=== PATIENT | female | born 1970 | race Caucasian/White ===

== ENCOUNTER → 2022-04-12 07:34 | Outpatient (CLI) | payer OTHER, SELFPAY ==
[2022-04-12 08:27] LABS: Add Manual Diff / Slide Review NO; Basophils Absolute Auto 0 /uL (0-100); Basophils Percent Auto 0.7 % (0-2); Eosinophils Absolute Auto 100 /uL (0-450); Eosinophils Percent Auto 1.9 % (2-4); Hematocrit 41.8 % (36-46); Hemoglobin 13.8 g/dL (12.0-16.0); Lymphocytes Absolute Auto 1700 /uL (1100-4500); Lymphocytes Percent Auto 33.1 % (25-40); Mean Corpuscular Hemoglobin 29.8 PG (26-34); Mean Corpuscular Volume 90.5 fL (80-100); Monocytes Absolute Auto 500 /uL (0-900); Monocytes Percent Auto 9.2 % (3-14); Neutrophils Absolute Auto 2900 /uL (1500-7000); Neutrophils Percent Auto 55.1 % (50-75); Platelet Count 272 X10^3/uL (150-400); Red Blood Cell Count 4.62 X10^6/uL (4.0-5.2); Red Cell Distribution Width 13.2 % (11.6-14.8); White Blood Cell Count 5.2 X10^3/uL (4.5-11.0)
[2022-04-12 08:48] LABS: Alanine Aminotransferase 24 IU/L (<35); Albumin 4.2 g/dL (3.5-5.0); Albumin Globulin Ratio 1.4 (1.0-2.8); Alkaline Phosphatase 58 U/L (38-126); Aspartate Aminotransferase 26 IU/L (14-36); BUN Creatinine Ratio 19.7 (6-22); Bilirubin Total 0.9 mg/dL (0.2-1.3); Blood Urea Nitrogen 14 mg/dL (7-17); Calcium 8.7 mg/dL (8.4-10.2); Carbon Dioxide 26 mmol/L (22-32); Chloride 103 mmol/L (98-107); Cholesterol 198 mg/dL (140-199); Estimated Glomerular Filt Rate > 60 mL/min (>60); Glucose 88 mg/dL (70-100); HDL Cholesterol 44 mg/dL (40-60); HEMOLYSIS < 15 (0-50); LDL Cholesterol Calculated 136 mg/dL (<100); Potassium 3.9 mmol/L (3.4-5.1); Sodium 139 mmol/L (137-145); Total Protein 7.2 g/dL (6.3-8.2); Triglycerides 88 mg/dL (35-150)
[2022-04-12 09:07] LABS: Vitamin D 25 Hydroxy (D3) 32.5 ng/mL (30.0-100.0)
[2022-04-12 09:22] LABS: TSH w/ Reflex to FT4 1.24 uIU/mL (0.47-4.68)
== END ==
PROVIDERS: PCP Family Medicine; Referring Provider Family Medicine; Visit Provider Family Medicine
DX: Z13.21 Encounter for screening for nutritional disorder (principal); Z13.220 Encounter for screening for lipoid disorders
CPT/HCPCS: 36415; 80053; 80061; 82306; 84443; 85025

== ENCOUNTER 2022-10-15 07:30 | Outpatient (RCR) | payer OTHER, SELFPAY ==
--- NOTE | 2022-07-15 18:47 | PT.OIE ---
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, subsequent encounter (07/15/22) Past Medical History (Last Updated 04/30/22 @ 17:04 by Rajan Merida DO) Acute left-sided low back pain with left-sided sciatica Anxiety (~2019) Bladder disorder (~2017) Brown-Sequard syndrome (~2019) Depression (~1999) Elevated LDL cholesterol level Low vitamin D level Paralysis Spinal cord stroke (~2019) Past Surgical History (Last Updated 04/29/22 @ 19:13 by Susan Kee) Anesthesia History of bladder repair surgery (~2017) History of hysterectomy (~2017) Visit Care Team Role Provider Type Rajan Merida DO Attending Provider Physician Family Provider Primary Care Provider Referring Provider Specialty: Family Practice Address: [address] [place] [address] Email: Physical Therapy Initial Evaluation PT-OP-A Visit Information Start: 07/14/22 21:47 Freq: Status: Active Protocol: Document 07/15/22 07:39 AMB (Rec: 07/15/22 07:54 AMB [id number]) Out-Patient Physical Therapy Visit Information Visit Information Visit Type Initial Evaluation Visit Start Time 07:30 Visit Stop Time 08:15 Total Visit Minutes 45 Visit Number 1 PT-OP-B Current Condition Start: 07/14/22 21:47 Freq: Status: Active Protocol: Document 07/15/22 07:39 AMB (Rec: 07/15/22 07:54 AMB [id number]) Current Condition History of Current Condition Onset Date April Current Complaints Back going out after spinal cord stroke History of Current Condition L leg had excrutiating pain when trying to get pants on for two days in April. 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 L LE has impaired balance and strength. Challenged with floor transfer using the left leg. Did do 8 weeks of PT when spinal cord stroke first happened. Is currently working out in the pool but concerned about strengthening L leg. Stairs- tries to alternate but needs a railing to do so. Feels like putting a lot of strain on the low back because of the strength deficits. Feels like she's weaker now than when she finished PT. Personal Factors Other Personal Factors That May Effect T5 spinal cord stroke in 2020 Therapy/Recovery PT-OP-C Subjective Start: 07/14/22 21:47 Freq: Status: Active Protocol: Document 07/15/22 07:30 AMB (Rec: 07/15/22 15:33 AMB [id number]) Patient Questionnaires Oswestry Low Back Index Oswestry Score 28 Oswestry Impairment 20 to 39% Impaired (Score 20- 39) OP-PT Pain Assessment Comments Pain Comments 10/14 midback pain to hip pain on the left, tenderness to palpation, spasms PT-OP-D Balance Start: 07/15/22 15:33 Freq: Status: Active Protocol: Document 07/15/22 07:30 AMB (Rec: 07/15/22 15:35 AMB [id number]) Balance Tests Single Limb Standing Single Limb- Right 7 Single Limb- Left 6 increased ankle sway PT-OP-G Mobility & Gait Start: 07/14/22 21:47 Freq: Status: Active Protocol: Document 07/15/22 07:30 AMB (Rec: 07/15/22 15:33 AMB [id number]) OP Gait Assessment Comments Gait Comments Pt reports she has an AFO that she does not use. She inverts her ankle excessivly during the swing phase of gait . PT-OP-J Posture/Palpation/Skin Start: 07/14/22 21:47 Freq: Status: Active Protocol: Document 07/15/22 07:30 AMB (Rec: 07/15/22 15:33 AMB [id number]) Palpation Assessment Location low back Palpation Details tenderness and tension worst at low lumbar sacrum PT-OP-M Strength Start: 07/14/22 21:47 Freq: Status: Active Protocol: Document 07/15/22 07:57 AMB (Rec: 07/15/22 08:20 AMB [id number]) Hip Strength Hip Manual Muscle Testing Right Flexion (L2) 4+ Good+ Extension (S1) 4+ Good+ Abduction 4+ Good+ Left Flexion (L2) 3 Fair Extension (S1) 3- Fair- Abduction 3- Fair- Knee Strength Knee Manual Muscle Testing Right Flexion (S2) 5 Normal Extension (L3) 5 Normal Left Flexion (S2) 4+ Good+ Extension (L3) 4 Good Ankle/Foot Strength Ankle and Foot Manual Muscle Testing Right Dorsiflexion (L4) 5 Normal Plantarflexion (S1) 5 Normal Inversion 5 Normal Eversion (S1) 5 Normal Left Dorsiflexion (L4) 4 Good Plantarflexion (S1) 4 Good Inversion 4 Good Eversion (S1) 3+ Fair+ PT-OP-T Assessment and Plan Start: 07/14/22 21:47 Freq: Status: Active Protocol: Document 07/15/22 07:39 AMB (Rec: 07/15/22 15:57 AMB [id number]) Physical Therapy Assessment Rehab Potential Rehabilitation Potential Good Evaluation Complexity Number of Personal Factors/Comorbidities 1-2 Number of Body Systems Impaired 4 or More Clinical Presentation at Evaluation Evolving Impairments Impairments Balance,Functional Mobility, Gait,Pain,Strength Goals Gait Short Term Goal (STG) Neelima will ambulate for 6 minutes over uneven terrain including grass, gravel and curb steps without exhibiting foot drop. STG Duration [address] Goal (LTG) Neelima will ascend and descend 3 stairs without railing usage so that she could carry something in her arms on stairs. LTG Duration 10 weeks Two Impairment Strength Short Term Goal (STG) Neelima will improve her strength in her L LE so that she can perform a floor transfer without UE support. STG Duration 5 weeks Penitentiary Goal (LTG) Neelima will be independent and consistent with a HEP for core, L LE strengthening, and back stretching. LTG Duration 10 weeks One Impairment Back pain Short Term Goal (STG) Neelima will roll over in bed without back spasms. STG Duration [address] Goal (LTG) Neelima will walk for 1 mile without an increase in back pain. LTG Duration 10 weeks Assessment Summary Assessment Neelima attends physical therapy with hx lumbar pain in the context of T5 spinal cord stroke in 2020. At this point she has developed compensatory strategies for her L sided LE weakness that are contributing to her lumbar pain. She will benefit from strength training to improve her strength so that she can mobilize without compensations that increase her back pain. Physical Therapy Plan Frequency and Duration Frequency of Treatment 2x/Week Duration of treatment (weeks) 10 Plan of Care Start Date 07/15/22 Plan of Care End Date 09/23/22 Therapeutic Interventions Therapeutic Interventions Balance Training,Gait Training ,Home Exercise Program,Manual Therapy,Neuromuscular Re- education,Self-Care/Home Management,Therapeutic Activities,Therapeutic Exercises Modalities Cold Pack/Ice Massage,Electric Stimulation,Hot Packs Next Visit Focus/Plan Next Note Type Treatment Note Next Visit Plan Begin with core stabilization, ankle strengthening, balance training. Progress to stairs, establish lumbar stretching HEP.
--- NOTE | 2022-07-15 18:48 | PT.OPPOC ---
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, subsequent encounter (07/15/22) Visit Care Team Role Provider Type Rajan Merida DO Attending Provider Physician Family Provider Primary Care Provider Referring Provider Specialty: Family Practice Address: [address] [place] [address], [phone] Email: Plan Of Care PT-OP-T Assessment and Plan Start: 07/14/22 21:47 Freq: Status: Active Protocol: Document 07/15/22 07:39 AMB (Rec: 07/15/22 15:57 AMB [id number]) Physical Therapy Assessment Rehab Potential Rehabilitation Potential Good Evaluation Complexity Number of Personal Factors/Comorbidities 1-2 Number of Body Systems Impaired 4 or More Clinical Presentation at Evaluation Evolving Impairments Impairments Balance,Functional Mobility, Gait,Pain,Strength Goals Gait Short Term Goal (STG) Neelima will ambulate for 6 minutes over uneven terrain including grass, gravel and curb steps without exhibiting foot drop. STG Duration 5 weeks Usp Goal (LTG) Neelima will ascend and descend 3 stairs without railing usage so that she could carry something in her arms on stairs. LTG Duration 10 weeks Two Impairment Strength Short Term Goal (STG) Neelima will improve her strength in her L LE so that she can perform a floor transfer without UE support. STG Duration 5 weeks Usp Goal (LTG) Neelima will be independent and consistent with a HEP for core, L LE strengthening, and back stretching. LTG Duration 10 weeks One Impairment Back pain Short Term Goal (STG) Neelima will roll over in bed without back spasms. STG Duration 5 weeks Revenue Coordinator Goal (LTG) Neelima will walk for 1 mile without an increase in back pain. LTG Duration 10 weeks Assessment Summary Assessment Neelima attends physical therapy with hx lumbar pain in the context of T5 spinal cord stroke in 2019. At this point she has developed compensatory strategies for her L sided LE weakness that are contributing to her lumbar pain. She will benefit from strength training to improve her strength so that she can mobilize without compensations that increase her back pain. Physical Therapy Plan Frequency and Duration Frequency of Treatment 2x/Week Duration of treatment (weeks) 10 Plan of Care Start Date 07/15/22 Plan of Care End Date 09/23/22 Therapeutic Interventions Therapeutic Interventions Balance Training,Gait Training ,Home Exercise Program,Manual Therapy,Neuromuscular Re- education,Self-Care/Home Management,Therapeutic Activities,Therapeutic Exercises Modalities Cold Pack/Ice Massage,Electric Stimulation,Hot Packs Next Visit Focus/Plan Next Note Type Treatment Note Next Visit Plan Begin with core stabilization, ankle strengthening, balance training. Progress to stairs, establish lumbar stretching HEP. Plan of Care Dates Plan of Care Start Date 07/15/22 Plan of Care End Date 09/23/22 Electronically Signed by: Leti Mcdermott, PT 07/15/22 4923 If you are in agreement with this Plan of Care, please return a signed and dated copy. I have reviewed this Plan of Care and certify that the skilled therapy services above are required to meet the patient?s needs. Physician Signature Date Printed Name and Credentials Clinical Instructor Signature Printed Name and Credentials
--- NOTE | 2022-07-19 09:02 | PT.OTN ---
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, subsequent encounter (07/19/22) Physical Therapy Treatment Note PT-OP-A Visit Information Start: 07/14/22 21:47 Freq: Status: Active Protocol: Document 07/19/22 07:27 AMB (Rec: 07/19/22 08:18 AMB [id number]) Out-Patient Physical Therapy Visit Information Visit Information Visit Type Treatment Note Visit Start Time 07:30 Visit Stop Time 08:15 Total Visit Minutes 45 Visit Number 2 PT-OP-B Current Condition Start: 07/14/22 21:47 Freq: Status: Active Protocol: Document 07/15/22 07:39 AMB (Rec: 07/15/22 07:54 AMB [id number]) Current Condition History of Current Condition Onset Date April Current Complaints Back going out after spinal cord stroke History of Current Condition L leg had excrutiating pain when trying to get pants on for two days in April. 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 L LE has impaired balance and strength. Challenged with floor transfer using the left leg. Did do 8 weeks of PT when spinal cord stroke first happened. Is currently working out in the pool but concerned about strengthening L leg. Stairs- tries to alternate but needs a railing to do so. Feels like putting a lot of strain on the low back because of the strength deficits. Feels like she's weaker now than when she finished PT. Personal Factors Other Personal Factors That May Effect T5 spinal cord stroke in 2019 Therapy/Recovery PT-OP-C Subjective Start: 07/14/22 21:47 Freq: Status: Active Protocol: Document 07/19/22 07:27 AMB (Rec: 07/19/22 08:18 AMB [id number]) OP-PT Subjective Patient Comments Patient Reported Progress Same PT-OP-D Balance Start: 07/15/22 15:33 Freq: Status: Active Protocol: Document 07/15/22 07:30 AMB (Rec: 07/15/22 15:35 AMB [id number]) Balance Tests Single Limb Standing Single Limb- Right 7 Single Limb- Left 6 increased ankle sway PT-OP-G Mobility & Gait Start: 07/14/22 21:47 Freq: Status: Active Protocol: Document 07/15/22 07:30 AMB (Rec: 07/15/22 15:33 AMB [id number]) OP Gait Assessment Comments Gait Comments Pt reports she has an AFO that she does not use. She inverts her ankle excessivly during the swing phase of gait . PT-OP-J Posture/Palpation/Skin Start: 07/14/22 21:47 Freq: Status: Active Protocol: Document 07/15/22 07:30 AMB (Rec: 07/15/22 15:33 AMB [id number]) Palpation Assessment Location low back Palpation Details tenderness and tension worst at low lumbar sacrum PT-OP-M Strength Start: 07/14/22 21:47 Freq: Status: Active Protocol: Document 07/15/22 07:57 AMB (Rec: 07/15/22 08:20 AMB [id number]) Hip Strength Hip Manual Muscle Testing Right Flexion (L2) 4+ Good+ Extension (S1) 4+ Good+ Abduction 4+ Good+ Left Flexion (L2) 3 Fair Extension (S1) 3- Fair- Abduction 3- Fair- Knee Strength Knee Manual Muscle Testing Right Flexion (S2) 5 Normal Extension (L3) 5 Normal Left Flexion (S2) 4+ Good+ Extension (L3) 4 Good Ankle/Foot Strength Ankle and Foot Manual Muscle Testing Right Dorsiflexion (L4) 5 Normal Plantarflexion (S1) 5 Normal Inversion 5 Normal Eversion (S1) 5 Normal Left Dorsiflexion (L4) 4 Good Plantarflexion (S1) 4 Good Inversion 4 Good Eversion (S1) 3+ Fair+ PT-OP-Q Treatments Start: 07/14/22 21:47 Freq: Status: Active Protocol: Document 07/19/22 07:27 AMB (Rec: 07/19/22 08:18 AMB [id number]) Gym Equipment Shuttle Recovery Bilateral Heel Raises Resistance 25 Reps/Time 2x10 Unilateral Squats Details L Resistance 25 Reps/Time 2x10 Bilateral Squats Resistance 50 Reps/Time 2x10 Therapeutic Exercises Supine Exercises DKTC Side bilateral Reps/Minutes 30x2 TA supine march Reps/Minutes 10 Comments cues for breath, challenging to lift L leg LTR Reps/Minutes 10 Sidelying Exercises clam Side left Reps/Minutes 20 Sitting Exercises toe raises Side bilateral Reps/Minutes 20 PT-OP-T Assessment and Plan Start: 07/14/22 21:47 Freq: Status: Active Protocol: Document 07/19/22 07:27 AMB (Rec: 07/19/22 08:18 AMB [id number]) Physical Therapy Assessment Goals Gait Short Term Goal (STG) Neelima will ambulate for 6 minutes over uneven terrain including grass, gravel and curb steps without exhibiting foot drop. STG Duration 5 weeks Bee Keeper Goal (LTG) Neelima will ascend and descend 3 stairs without railing usage so that she could carry something in her arms on stairs. LTG Duration 10 weeks Two Impairment Strength Short Term Goal (STG) Neelima will improve her strength in her L LE so that she can perform a floor transfer without UE support. STG Duration 5 weeks Bee Keeper Goal (LTG) Neelima will be independent and consistent with a HEP for core, L LE strengthening, and back stretching. LTG Duration 10 weeks One Impairment Back pain Short Term Goal (STG) Neelima will roll over in bed without back spasms. STG Duration 5 weeks Jail Goal (LTG) Neelima will walk for 1 mile without an increase in back pain. LTG Duration 10 weeks Assessment Summary Assessment Neelima struggled with single leg press with 25# on the left . Significant glute/quad weakness make stairs very challenging, also encouraged in stretcing for spasms and to start work on ankle strengthening, will need to progress ankle/balance next visit. Physical Therapy Plan Frequency and Duration Frequency of Treatment 2x/Week Duration of treatment (weeks) 10 Plan of Care Start Date 07/15/22 Plan of Care End Date 09/23/22 Therapeutic Interventions Therapeutic Interventions Balance Training,Gait Training ,Home Exercise Program,Manual Therapy,Neuromuscular Re- education,Self-Care/Home Management,Therapeutic Activities,Therapeutic Exercises Modalities Cold Pack/Ice Massage,Electric Stimulation,Hot Packs Next Visit Focus/Plan Next Note Type Treatment Note Next Visit Plan Begin with core stabilization, ankle strengthening, balance training. Progress to stairs, establish lumbar stretching HEP.
--- NOTE | 2022-07-22 08:16 | PT.OTN ---
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, subsequent encounter (07/22/22) Physical Therapy Treatment Note PT-OP-A Visit Information Start: 07/14/22 21:47 Freq: Status: Active Protocol: Document 07/22/22 07:23 AMB (Rec: 07/22/22 08:16 AMB [id number]) Out-Patient Physical Therapy Visit Information Visit Information Visit Type Treatment Note Visit Start Time 07:30 Visit Stop Time 08:15 Total Visit Minutes 45 Visit Number 3 PT-OP-B Current Condition Start: 07/14/22 21:47 Freq: Status: Active Protocol: Document 07/15/22 07:39 AMB (Rec: 07/15/22 07:54 AMB [id number]) Current Condition History of Current Condition Onset Date April Current Complaints Back going out after spinal cord stroke History of Current Condition L leg had excrutiating pain when trying to get pants on for two days in April. 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 L LE has impaired balance and strength. Challenged with floor transfer using the left leg. Did do 8 weeks of PT when spinal cord stroke first happened. Is currently working out in the pool but concerned about strengthening L leg. Stairs- tries to alternate but needs a railing to do so. Feels like putting a lot of strain on the low back because of the strength deficits. Feels like she's weaker now than when she finished PT. Personal Factors Other Personal Factors That May Effect T5 spinal cord stroke in 2019 Therapy/Recovery PT-OP-C Subjective Start: 07/14/22 21:47 Freq: Status: Active Protocol: Document 07/22/22 07:23 AMB (Rec: 07/22/22 08:16 AMB [id number]) OP-PT Subjective Patient Comments Patient Comments Pt reports she did a lot of walking over the weekend so did have some muscle cramp from. PT-OP-D Balance Start: 07/15/22 15:33 Freq: Status: Active Protocol: Document 07/15/22 07:30 AMB (Rec: 07/15/22 15:35 AMB [id number]) Balance Tests Single Limb Standing Single Limb- Right 7 Single Limb- Left 6 increased ankle sway PT-OP-G Mobility & Gait Start: 07/14/22 21:47 Freq: Status: Active Protocol: Document 07/15/22 07:30 AMB (Rec: 07/15/22 15:33 AMB [id number]) OP Gait Assessment Comments Gait Comments Pt reports she has an AFO that she does not use. She inverts her ankle excessivly during the swing phase of gait . PT-OP-J Posture/Palpation/Skin Start: 07/14/22 21:47 Freq: Status: Active Protocol: Document 07/15/22 07:30 AMB (Rec: 07/15/22 15:33 AMB [id number]) Palpation Assessment Location low back Palpation Details tenderness and tension worst at low lumbar sacrum PT-OP-M Strength Start: 07/14/22 21:47 Freq: Status: Active Protocol: Document 07/15/22 07:57 AMB (Rec: 07/15/22 08:20 AMB [id number]) Hip Strength Hip Manual Muscle Testing Right Flexion (L2) 4+ Good+ Extension (S1) 4+ Good+ Abduction 4+ Good+ Left Flexion (L2) 3 Fair Extension (S1) 3- Fair- Abduction 3- Fair- Knee Strength Knee Manual Muscle Testing Right Flexion (S2) 5 Normal Extension (L3) 5 Normal Left Flexion (S2) 4+ Good+ Extension (L3) 4 Good Ankle/Foot Strength Ankle and Foot Manual Muscle Testing Right Dorsiflexion (L4) 5 Normal Plantarflexion (S1) 5 Normal Inversion 5 Normal Eversion (S1) 5 Normal Left Dorsiflexion (L4) 4 Good Plantarflexion (S1) 4 Good Inversion 4 Good Eversion (S1) 3+ Fair+ PT-OP-Q Treatments Start: 07/14/22 21:47 Freq: Status: Active Protocol: Document 07/22/22 07:23 AMB (Rec: 07/22/22 08:16 AMB [id number]) Gym Equipment Shuttle Recovery Unilateral Squats Details L Resistance 25 Reps/Time 2x10 Bilateral Squats Resistance 50 Reps/Time 2x10 Therapeutic Exercises Supine Exercises DKTC Side bilateral Reps/Minutes 30x2 TA supine march Reps/Minutes 10 Comments cues for breath, challenging to lift L leg LTR Reps/Minutes 10 Standing Exercises blue foam Standing Exercise Name challenging for ankles mini lunges Reps/Minutes 10x2 Other Exercises quadruped UE ext Other Exercise Name with TA contract cristina pose Other Exercise Name sidebending Reps/Minutes 30x2 PT-OP-T Assessment and Plan Start: 07/14/22 21:47 Freq: Status: Active Protocol: Document 07/22/22 07:23 AMB (Rec: 07/22/22 08:16 AMB [id number]) Physical Therapy Assessment Goals Gait Short Term Goal (STG) Neelima will ambulate for 6 minutes over uneven terrain including grass, gravel and curb steps without exhibiting foot drop. STG Duration 5 weeks Prison Goal (LTG) Neelima will ascend and descend 3 stairs without railing usage so that she could carry something in her arms on stairs. LTG Duration 10 weeks Two Impairment Strength Short Term Goal (STG) Neelima will improve her strength in her L LE so that she can perform a floor transfer without UE support. STG Duration 5 weeks Prison Goal (LTG) Neelima will be independent and consistent with a HEP for core, L LE strengthening, and back stretching. LTG Duration 10 weeks One Impairment Back pain Short Term Goal (STG) Neelima will roll over in bed without back spasms. STG Duration 5 weeks Prison Goal (LTG) Neelima will walk for 1 mile without an increase in back pain. LTG Duration 10 weeks Physical Therapy Plan Frequency and Duration Frequency of Treatment 2x/Week Duration of treatment (weeks) 10 Plan of Care Start Date 07/15/22 Plan of Care End Date 09/23/22 Therapeutic Interventions Therapeutic Interventions Balance Training,Gait Training ,Home Exercise Program,Manual Therapy,Neuromuscular Re- education,Self-Care/Home Management,Therapeutic Activities,Therapeutic Exercises Modalities Cold Pack/Ice Massage,Electric Stimulation,Hot Packs Next Visit Focus/Plan Next Note Type Treatment Note Next Visit Plan Begin with core stabilization, ankle strengthening, balance training. Progress to stairs, establish lumbar stretching HEP.
--- NOTE | 2022-07-26 08:17 | PT.OTN ---
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, subsequent encounter (07/26/22) Physical Therapy Treatment Note PT-OP-A Visit Information Start: 07/14/22 21:47 Freq: Status: Active Protocol: Document 07/26/22 07:30 AMB (Rec: 07/26/22 08:11 AMB [id number]) Out-Patient Physical Therapy Visit Information Visit Information Visit Type Treatment Note Visit Start Time 07:30 Visit Stop Time 08:15 Total Visit Minutes 45 Visit Number 4 PT-OP-B Current Condition Start: 07/14/22 21:47 Freq: Status: Active Protocol: Document 07/15/22 07:39 AMB (Rec: 07/15/22 07:54 AMB [id number]) Current Condition History of Current Condition Onset Date April Current Complaints Back going out after spinal cord stroke History of Current Condition L leg had excrutiating pain when trying to get pants on for two days in April. 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 L LE has impaired balance and strength. Challenged with floor transfer using the left leg. Did do 8 weeks of PT when spinal cord stroke first happened. Is currently working out in the pool but concerned about strengthening L leg. Stairs- tries to alternate but needs a railing to do so. Feels like putting a lot of strain on the low back because of the strength deficits. Feels like she's weaker now than when she finished PT. Personal Factors Other Personal Factors That May Effect T5 spinal cord stroke in 2019 Therapy/Recovery PT-OP-C Subjective Start: 07/14/22 21:47 Freq: Status: Active Protocol: Document 07/26/22 07:30 AMB (Rec: 07/26/22 08:11 AMB [id number]) OP-PT Subjective Patient Comments Patient Comments Pt reports working long hours that makes exercising challenging PT-OP-D Balance Start: 07/15/22 15:33 Freq: Status: Active Protocol: Document 07/15/22 07:30 AMB (Rec: 07/15/22 15:35 AMB [id number]) Balance Tests Single Limb Standing Single Limb- Right 7 Single Limb- Left 6 increased ankle sway PT-OP-G Mobility & Gait Start: 07/14/22 21:47 Freq: Status: Active Protocol: Document 07/15/22 07:30 AMB (Rec: 07/15/22 15:33 AMB [id number]) OP Gait Assessment Comments Gait Comments Pt reports she has an AFO that she does not use. She inverts her ankle excessivly during the swing phase of gait . PT-OP-J Posture/Palpation/Skin Start: 07/14/22 21:47 Freq: Status: Active Protocol: Document 07/15/22 07:30 AMB (Rec: 07/15/22 15:33 AMB [id number]) Palpation Assessment Location low back Palpation Details tenderness and tension worst at low lumbar sacrum PT-OP-M Strength Start: 07/14/22 21:47 Freq: Status: Active Protocol: Document 07/15/22 07:57 AMB (Rec: 07/15/22 08:20 AMB [id number]) Hip Strength Hip Manual Muscle Testing Right Flexion (L2) 4+ Good+ Extension (S1) 4+ Good+ Abduction 4+ Good+ Left Flexion (L2) 3 Fair Extension (S1) 3- Fair- Abduction 3- Fair- Knee Strength Knee Manual Muscle Testing Right Flexion (S2) 5 Normal Extension (L3) 5 Normal Left Flexion (S2) 4+ Good+ Extension (L3) 4 Good Ankle/Foot Strength Ankle and Foot Manual Muscle Testing Right Dorsiflexion (L4) 5 Normal Plantarflexion (S1) 5 Normal Inversion 5 Normal Eversion (S1) 5 Normal Left Dorsiflexion (L4) 4 Good Plantarflexion (S1) 4 Good Inversion 4 Good Eversion (S1) 3+ Fair+ PT-OP-Q Treatments Start: 07/14/22 21:47 Freq: Status: Active Protocol: Document 07/26/22 07:30 AMB (Rec: 07/26/22 08:11 AMB [id number]) Therapeutic Exercises Sitting Exercises sitting stretch Sitting Exercise Name lumbar QL on desk Reps/Minutes 30x2 65cm ball Sitting Exercise Name marches, LAQ, pelvic circles Reps/Minutes 10 Standing Exercises hamstring stretch Standing Exercise Name on stair Reps/Minutes 2x30 heel raises Standing Exercise Name on stair-- double leg, single leg challenging Side bilateral Reps/Minutes 2x10 Comments with calf stretch PT-OP-T Assessment and Plan Start: 07/14/22 21:47 Freq: Status: Active Protocol: Document 07/26/22 07:30 AMB (Rec: 07/26/22 08:11 AMB [id number]) Physical Therapy Assessment Goals Gait Short Term Goal (STG) Neelima will ambulate for 6 minutes over uneven terrain including grass, gravel and curb steps without exhibiting foot drop. STG Duration 5 weeks Pre Planning Advisor Goal (LTG) Neelima will ascend and descend 3 stairs without railing usage so that she could carry something in her arms on stairs. LTG Duration 10 weeks Two Impairment Strength Short Term Goal (STG) Neelima will improve her strength in her L LE so that she can perform a floor transfer without UE support. STG Duration 5 weeks Pre Planning Advisor Goal (LTG) Neelima will be independent and consistent with a HEP for core, L LE strengthening, and back stretching. LTG Duration 10 weeks One Impairment Back pain Short Term Goal (STG) Neelima will roll over in bed without back spasms. STG Duration 5 weeks Pre Planning Advisor Goal (LTG) Neelima will walk for 1 mile without an increase in back pain. LTG Duration 10 weeks Assessment Summary Assessment Neelima struggles with finding time to exercise due to long work hours. Did work on exercises she could do sitting or standing so she can incorporate them into her work routine. Physical Therapy Plan Frequency and Duration Frequency of Treatment 2x/Week Duration of treatment (weeks) 10 Plan of Care Start Date 07/15/22 Plan of Care End Date 09/23/22 Therapeutic Interventions Therapeutic Interventions Balance Training,Gait Training ,Home Exercise Program,Manual Therapy,Neuromuscular Re- education,Self-Care/Home Management,Therapeutic Activities,Therapeutic Exercises Modalities Cold Pack/Ice Massage,Electric Stimulation,Hot Packs Next Visit Focus/Plan Next Note Type Treatment Note Next Visit Plan Begin with core stabilization, ankle strengthening, balance training. Progress to stairs, establish lumbar stretching HEP.
--- NOTE | 2022-08-05 08:28 | PT.OTN ---
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, subsequent encounter (08/05/22) Physical Therapy Treatment Note PT-OP-A Visit Information Start: 07/14/22 21:47 Freq: Status: Active Protocol: Document 08/05/22 07:37 AMB (Rec: 08/05/22 08:28 AMB [id number]) Out-Patient Physical Therapy Visit Information Visit Information Visit Type Treatment Note Visit Start Time 07:30 Visit Stop Time 08:15 Total Visit Minutes 45 Visit Number 5 PT-OP-B Current Condition Start: 07/14/22 21:47 Freq: Status: Active Protocol: Document 07/15/22 07:39 AMB (Rec: 07/15/22 07:54 AMB [id number]) Current Condition History of Current Condition Onset Date April Current Complaints Back going out after spinal cord stroke History of Current Condition L leg had excrutiating pain when trying to get pants on for two days in April. 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 L LE has impaired balance and strength. Challenged with floor transfer using the left leg. Did do 8 weeks of PT when spinal cord stroke first happened. Is currently working out in the pool but concerned about strengthening L leg. Stairs- tries to alternate but needs a railing to do so. Feels like putting a lot of strain on the low back because of the strength deficits. Feels like she's weaker now than when she finished PT. Personal Factors Other Personal Factors That May Effect T5 spinal cord stroke in 2019 Therapy/Recovery PT-OP-C Subjective Start: 07/14/22 21:47 Freq: Status: Active Protocol: Document 07/26/22 07:30 AMB (Rec: 07/26/22 08:11 AMB [id number]) OP-PT Subjective Patient Comments Patient Comments Pt reports working long hours that makes exercising challenging PT-OP-D Balance Start: 07/15/22 15:33 Freq: Status: Active Protocol: Document 07/15/22 07:30 AMB (Rec: 07/15/22 15:35 AMB [id number]) Balance Tests Single Limb Standing Single Limb- Right 7 Single Limb- Left 6 increased ankle sway PT-OP-G Mobility & Gait Start: 07/14/22 21:47 Freq: Status: Active Protocol: Document 07/15/22 07:30 AMB (Rec: 07/15/22 15:33 AMB [id number]) OP Gait Assessment Comments Gait Comments Pt reports she has an AFO that she does not use. She inverts her ankle excessivly during the swing phase of gait . PT-OP-J Posture/Palpation/Skin Start: 07/14/22 21:47 Freq: Status: Active Protocol: Document 07/15/22 07:30 AMB (Rec: 07/15/22 15:33 AMB [id number]) Palpation Assessment Location low back Palpation Details tenderness and tension worst at low lumbar sacrum PT-OP-M Strength Start: 07/14/22 21:47 Freq: Status: Active Protocol: Document 07/15/22 07:57 AMB (Rec: 07/15/22 08:20 AMB [id number]) Hip Strength Hip Manual Muscle Testing Right Flexion (L2) 4+ Good+ Extension (S1) 4+ Good+ Abduction 4+ Good+ Left Flexion (L2) 3 Fair Extension (S1) 3- Fair- Abduction 3- Fair- Knee Strength Knee Manual Muscle Testing Right Flexion (S2) 5 Normal Extension (L3) 5 Normal Left Flexion (S2) 4+ Good+ Extension (L3) 4 Good Ankle/Foot Strength Ankle and Foot Manual Muscle Testing Right Dorsiflexion (L4) 5 Normal Plantarflexion (S1) 5 Normal Inversion 5 Normal Eversion (S1) 5 Normal Left Dorsiflexion (L4) 4 Good Plantarflexion (S1) 4 Good Inversion 4 Good Eversion (S1) 3+ Fair+ PT-OP-Q Treatments Start: 07/14/22 21:47 Freq: Status: Active Protocol: Document 08/05/22 07:37 AMB (Rec: 08/05/22 08:28 AMB [id number]) Gym Equipment Shuttle Recovery Bilateral Heel Raises Resistance 25 Reps/Time 2x10 Unilateral Squats Details L Resistance 25 Reps/Time 2x10 Bilateral Squats Resistance 50 Reps/Time 2x10 Therapeutic Exercises Sitting Exercises sitting stretch Sitting Exercise Name lumbar QL on desk Reps/Minutes 30x2 65cm ball Sitting Exercise Name marches, LAQ, pelvic circles Reps/Minutes 10 Standing Exercises stairs Standing Exercise Name alternating step ups Reps/Minutes 10 Comments with UE support heel raises Standing Exercise Name on stair-- double leg, single leg challenging Side bilateral Reps/Minutes 2x10 Comments with calf stretch Other Exercises quadruped UE ext Other Exercise Name with TA contract Reps/Minutes 10 Comments added in LE ext Neuro Re-Education Treatment Balance Activities 1 Details Tandem stance Comments challenging tends to offload L PT-OP-T Assessment and Plan Start: 07/14/22 21:47 Freq: Status: Active Protocol: Document 08/05/22 07:37 AMB (Rec: 08/05/22 08:28 AMB [id number]) Physical Therapy Assessment Goals Gait Short Term Goal (STG) Neelima will ambulate for 6 minutes over uneven terrain including grass, gravel and curb steps without exhibiting foot drop. STG Duration 5 weeks Railway Signal Technician Goal (LTG) Neelima will ascend and descend 3 stairs without railing usage so that she could carry something in her arms on stairs. LTG Duration 10 weeks Two Impairment Strength Short Term Goal (STG) Neelima will improve her strength in her L LE so that she can perform a floor transfer without UE support. STG Duration 5 weeks Long-Term Goal (LTG) Neelima will be independent and consistent with a HEP for core, L LE strengthening, and back stretching. LTG Duration 10 weeks One Impairment Back pain Short Term Goal (STG) Neelima will roll over in bed without back spasms. STG Duration 5 weeks Long-Term Goal (LTG) Neelima will walk for 1 mile without an increase in back pain. LTG Duration 10 weeks Assessment Summary Assessment Neelima bought a ball and is planning to use it at work, has used it at home. Overall is progressing, but continues to have difficulty with stairs and squats. Balance and ankle stability improving. Physical Therapy Plan Frequency and Duration Frequency of Treatment 2x/Week Duration of treatment (weeks) 10 Plan of Care Start Date 07/15/22 Plan of Care End Date 09/23/22 Therapeutic Interventions Therapeutic Interventions Balance Training,Gait Training ,Home Exercise Program,Manual Therapy,Neuromuscular Re- education,Self-Care/Home Management,Therapeutic Activities,Therapeutic Exercises Modalities Cold Pack/Ice Massage,Electric Stimulation,Hot Packs Next Visit Focus/Plan Next Note Type Treatment Note Next Visit Plan Begin with core stabilization, ankle strengthening, balance training. Progress to stairs, establish lumbar stretching HEP.
--- NOTE | 2022-08-07 09:03 | PT.OTN ---
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, subsequent encounter (08/07/22) Physical Therapy Treatment Note PT-OP-A Visit Information Start: 07/14/22 21:47 Freq: Status: Active Protocol: Document 08/07/22 08:18 AMB (Rec: 08/07/22 09:02 AMB [id number]) Out-Patient Physical Therapy Visit Information Visit Information Visit Type Treatment Note Visit Start Time 08:15 Visit Stop Time 09:00 Total Visit Minutes 45 Visit Number 6 PT-OP-B Current Condition Start: 07/14/22 21:47 Freq: Status: Active Protocol: Document 07/15/22 07:39 AMB (Rec: 07/15/22 07:54 AMB [id number]) Current Condition History of Current Condition Onset Date April Current Complaints Back going out after spinal cord stroke History of Current Condition L leg had excrutiating pain when trying to get pants on for two days in April. 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 L LE has impaired balance and strength. Challenged with floor transfer using the left leg. Did do 8 weeks of PT when spinal cord stroke first happened. Is currently working out in the pool but concerned about strengthening L leg. Stairs- tries to alternate but needs a railing to do so. Feels like putting a lot of strain on the low back because of the strength deficits. Feels like she's weaker now than when she finished PT. Personal Factors Other Personal Factors That May Effect T5 spinal cord stroke in 2019 Therapy/Recovery PT-OP-C Subjective Start: 07/14/22 21:47 Freq: Status: Active Protocol: Document 08/07/22 08:18 AMB (Rec: 08/07/22 09:02 AMB [id number]) OP-PT Subjective Patient Comments Patient Comments Spasms increase with time in sitting. PT-OP-D Balance Start: 07/15/22 15:33 Freq: Status: Active Protocol: Document 07/15/22 07:30 AMB (Rec: 07/15/22 15:35 AMB [id number]) Balance Tests Single Limb Standing Single Limb- Right 7 Single Limb- Left 6 increased ankle sway PT-OP-G Mobility & Gait Start: 07/14/22 21:47 Freq: Status: Active Protocol: Document 07/15/22 07:30 AMB (Rec: 07/15/22 15:33 AMB [id number]) OP Gait Assessment Comments Gait Comments Pt reports she has an AFO that she does not use. She inverts her ankle excessivly during the swing phase of gait . PT-OP-J Posture/Palpation/Skin Start: 07/14/22 21:47 Freq: Status: Active Protocol: Document 07/15/22 07:30 AMB (Rec: 07/15/22 15:33 AMB [id number]) Palpation Assessment Location low back Palpation Details tenderness and tension worst at low lumbar sacrum PT-OP-M Strength Start: 07/14/22 21:47 Freq: Status: Active Protocol: Document 07/15/22 07:57 AMB (Rec: 07/15/22 08:20 AMB [id number]) Hip Strength Hip Manual Muscle Testing Right Flexion (L2) 4+ Good+ Extension (S1) 4+ Good+ Abduction 4+ Good+ Left Flexion (L2) 3 Fair Extension (S1) 3- Fair- Abduction 3- Fair- Knee Strength Knee Manual Muscle Testing Right Flexion (S2) 5 Normal Extension (L3) 5 Normal Left Flexion (S2) 4+ Good+ Extension (L3) 4 Good Ankle/Foot Strength Ankle and Foot Manual Muscle Testing Right Dorsiflexion (L4) 5 Normal Plantarflexion (S1) 5 Normal Inversion 5 Normal Eversion (S1) 5 Normal Left Dorsiflexion (L4) 4 Good Plantarflexion (S1) 4 Good Inversion 4 Good Eversion (S1) 3+ Fair+ PT-OP-Q Treatments Start: 07/14/22 21:47 Freq: Status: Active Protocol: Document 08/07/22 08:18 AMB (Rec: 08/07/22 09:02 AMB [id number]) Gym Equipment Shuttle Recovery Bilateral Heel Raises Resistance 25 Reps/Time 2x10 Unilateral Squats Details L Resistance 25 Reps/Time 2x10 Bilateral Squats Resistance 50 Reps/Time 2x10 Therapeutic Exercises Sitting Exercises sitting stretch Sitting Exercise Name lumbar QL on desk Reps/Minutes 30x2 65cm ball Sitting Exercise Name marches, LAQ, pelvic circles Reps/Minutes 10 PT-OP-R Modalities Start: 07/14/22 21:47 Freq: Status: Active Protocol: Document 08/07/22 09:02 AMB (Rec: 08/07/22 09:03 AMB [id number]) Electric Stimulation Electric Stimulation Citizen [place] Stimulation Body Location L tib anterior Duration (Minutes) 10 Comments with toe raises PT-OP-T Assessment and Plan Start: 07/14/22 21:47 Freq: Status: Active Protocol: Document 08/07/22 08:18 AMB (Rec: 08/07/22 09:02 AMB [id number]) Physical Therapy Assessment Goals Gait Short Term Goal (STG) Neelima will ambulate for 6 minutes over uneven terrain including grass, gravel and curb steps without exhibiting foot drop. STG Duration 5 weeks [employer] Goal (LTG) Neelima will ascend and descend 3 stairs without railing usage so that she could carry something in her arms on stairs. LTG Duration 10 weeks Two Impairment Strength Short Term Goal (STG) Neelima will improve her strength in her L LE so that she can perform a floor transfer without UE support. STG Duration 5 weeks Ad Writer Goal (LTG) Neelima will be independent and consistent with a HEP for core, L LE strengthening, and back stretching. LTG Duration 10 weeks One Impairment Back pain Short Term Goal (STG) Neelima will roll over in bed without back spasms. STG Duration 5 weeks Ad Writer Goal (LTG) Neelima will walk for 1 mile without an increase in back pain. LTG Duration 10 weeks Assessment Summary Assessment Neelima is feeling better, but continues to have fatigue in claudia right leg. Right foot drop is a problem when she gets fatigue. Physical Therapy Plan Frequency and Duration Frequency of Treatment 2x/Week Duration of treatment (weeks) 10 Plan of Care Start Date 07/15/22 Plan of Care End Date 09/23/22 Therapeutic Interventions Therapeutic Interventions Balance Training,Gait Training ,Home Exercise Program,Manual Therapy,Neuromuscular Re- education,Self-Care/Home Management,Therapeutic Activities,Therapeutic Exercises Modalities Cold Pack/Ice Massage,Electric Stimulation,Hot Packs Next Visit Focus/Plan Next Note Type Treatment Note Next Visit Plan Begin with core stabilization, ankle strengthening, balance training. Progress to stairs, establish lumbar stretching HEP.
--- NOTE | 2022-08-13 15:53 | PT.OTN ---
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, subsequent encounter (08/13/22) Physical Therapy Treatment Note PT-OP-A Visit Information Start: 07/14/22 21:47 Freq: Status: Active Protocol: Document 08/13/22 12:02 AMB (Rec: 08/13/22 12:48 AMB [id number]) Out-Patient Physical Therapy Visit Information Visit Information Visit Type Treatment Note Visit Start Time 12:00 Visit Stop Time 12:45 Total Visit Minutes 45 Visit Number 7 PT-OP-B Current Condition Start: 07/14/22 21:47 Freq: Status: Active Protocol: Document 07/15/22 07:39 AMB (Rec: 07/15/22 07:54 AMB [id number]) Current Condition History of Current Condition Onset Date April Current Complaints Back going out after spinal cord stroke History of Current Condition L leg had excrutiating pain when trying to get pants on for two days in April. 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 L LE has impaired balance and strength. Challenged with floor transfer using the left leg. Did do 8 weeks of PT when spinal cord stroke first happened. Is currently working out in the pool but concerned about strengthening L leg. Stairs- tries to alternate but needs a railing to do so. Feels like putting a lot of strain on the low back because of the strength deficits. Feels like she's weaker now than when she finished PT. Personal Factors Other Personal Factors That May Effect T5 spinal cord stroke in 2019 Therapy/Recovery PT-OP-C Subjective Start: 07/14/22 21:47 Freq: Status: Active Protocol: Document 08/13/22 12:02 AMB (Rec: 08/13/22 12:48 AMB [id number]) OP-PT Subjective Patient Comments Patient Comments Pt reports increased back pain s/p wearing high heels to work yesterday. PT-OP-D Balance Start: 07/15/22 15:33 Freq: Status: Active Protocol: Document 07/15/22 07:30 AMB (Rec: 07/15/22 15:35 AMB [id number]) Balance Tests Single Limb Standing Single Limb- Right 7 Single Limb- Left 6 increased ankle sway PT-OP-G Mobility & Gait Start: 07/14/22 21:47 Freq: Status: Active Protocol: Document 07/15/22 07:30 AMB (Rec: 07/15/22 15:33 AMB [id number]) OP Gait Assessment Comments Gait Comments Pt reports she has an AFO that she does not use. She inverts her ankle excessivly during the swing phase of gait . PT-OP-J Posture/Palpation/Skin Start: 07/14/22 21:47 Freq: Status: Active Protocol: Document 07/15/22 07:30 AMB (Rec: 07/15/22 15:33 AMB [id number]) Palpation Assessment Location low back Palpation Details tenderness and tension worst at low lumbar sacrum PT-OP-M Strength Start: 07/14/22 21:47 Freq: Status: Active Protocol: Document 07/15/22 07:57 AMB (Rec: 07/15/22 08:20 AMB [id number]) Hip Strength Hip Manual Muscle Testing Right Flexion (L2) 4+ Good+ Extension (S1) 4+ Good+ Abduction 4+ Good+ Left Flexion (L2) 3 Fair Extension (S1) 3- Fair- Abduction 3- Fair- Knee Strength Knee Manual Muscle Testing Right Flexion (S2) 5 Normal Extension (L3) 5 Normal Left Flexion (S2) 4+ Good+ Extension (L3) 4 Good Ankle/Foot Strength Ankle and Foot Manual Muscle Testing Right Dorsiflexion (L4) 5 Normal Plantarflexion (S1) 5 Normal Inversion 5 Normal Eversion (S1) 5 Normal Left Dorsiflexion (L4) 4 Good Plantarflexion (S1) 4 Good Inversion 4 Good Eversion (S1) 3+ Fair+ PT-OP-Q Treatments Start: 07/14/22 21:47 Freq: Status: Active Protocol: Document 08/13/22 12:02 AMB (Rec: 08/13/22 12:48 AMB [id number]) Gym Equipment Shuttle Recovery Bilateral Heel Raises Resistance 25 Reps/Time 2x10 Unilateral Squats Details L Resistance 25 Reps/Time 2x10 Bilateral Squats Resistance 50 Reps/Time 2x10 Shuttle Balance RED Details a/p and m/l Reps/Duration 10 min Comments increased back pain cue core stabilization Therapeutic Exercises Supine Exercises hip flexor stretch Reps/Minutes 30x3 Standing Exercises heel raises Standing Exercise Name double heel raise, single leg down Reps/Minutes 10 Neuro Re-Education Treatment Balance Activities 1 Details wobble board Comments for ankle pf/df PT-OP-R Modalities Start: 07/14/22 21:47 Freq: Status: Active Protocol: Document 08/07/22 09:02 AMB (Rec: 08/07/22 09:03 AMB [id number]) Electric Stimulation Electric Stimulation Japanese Stimulation Body Location L tib anterior Duration (Minutes) 10 Comments with toe raises PT-OP-T Assessment and Plan Start: 07/14/22 21:47 Freq: Status: Active Protocol: Document 08/13/22 12:02 AMB (Rec: 08/13/22 12:48 AMB [id number]) Physical Therapy Assessment Goals Gait Short Term Goal (STG) Neelima will ambulate for 6 minutes over uneven terrain including grass, gravel and curb steps without exhibiting foot drop. STG Duration 5 weeks Halfway Goal (LTG) Neelima will ascend and descend 3 stairs without railing usage so that she could carry something in her arms on stairs. LTG Duration 10 weeks Two Impairment Strength Short Term Goal (STG) Neelima will improve her strength in her L LE so that she can perform a floor transfer without UE support. STG Duration 5 weeks Halfway Goal (LTG) Neelima will be independent and consistent with a HEP for core, L LE strengthening, and back stretching. LTG Duration 10 weeks One Impairment Back pain Short Term Goal (STG) Neelima will roll over in bed without back spasms. STG Duration 5 weeks Halfway Goal (LTG) Neelima will walk for 1 mile without an increase in back pain. LTG Duration 10 weeks Assessment Summary Assessment Encouraged Neelima in hip flexor stretching for low back pain relief. Working on ankle/calf strengthing, consider double heel raise up and single control down for next HEP progression. Physical Therapy Plan Frequency and Duration Frequency of Treatment 2x/Week Duration of treatment (weeks) 10 Plan of Care Start Date 07/15/22 Plan of Care End Date 09/23/22 Therapeutic Interventions Therapeutic Interventions Balance Training,Gait Training ,Home Exercise Program,Manual Therapy,Neuromuscular Re- education,Self-Care/Home Management,Therapeutic Activities,Therapeutic Exercises Modalities Cold Pack/Ice Massage,Electric Stimulation,Hot Packs Next Visit Focus/Plan Next Note Type Treatment Note Next Visit Plan Begin with core stabilization, ankle strengthening, balance training. Progress to stairs, establish lumbar stretching HEP.
--- NOTE | 2022-08-16 21:23 | PT.OTN ---
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, subsequent encounter (08/16/22) Physical Therapy Treatment Note PT-OP-A Visit Information Start: 07/14/22 21:47 Freq: Status: Active Protocol: Document 08/16/22 13:41 AMB (Rec: 08/16/22 14:29 AMB [id number]) Out-Patient Physical Therapy Visit Information Visit Information Visit Type Treatment Note Visit Start Time 13:30 Visit Stop Time 14:15 Total Visit Minutes 45 Visit Number 8 PT-OP-B Current Condition Start: 07/14/22 21:47 Freq: Status: Active Protocol: Document 07/15/22 07:39 AMB (Rec: 07/15/22 07:54 AMB [id number]) Current Condition History of Current Condition Onset Date April Current Complaints Back going out after spinal cord stroke History of Current Condition L leg had excrutiating pain when trying to get pants on for two days in April. 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 L LE has impaired balance and strength. Challenged with floor transfer using the left leg. Did do 8 weeks of PT when spinal cord stroke first happened. Is currently working out in the pool but concerned about strengthening L leg. Stairs- tries to alternate but needs a railing to do so. Feels like putting a lot of strain on the low back because of the strength deficits. Feels like she's weaker now than when she finished PT. Personal Factors Other Personal Factors That May Effect T5 spinal cord stroke in 2019 Therapy/Recovery PT-OP-C Subjective Start: 07/14/22 21:47 Freq: Status: Active Protocol: Document 08/16/22 13:41 AMB (Rec: 08/16/22 14:29 AMB [id number]) OP-PT Subjective Patient Comments Patient Comments Pt reports fatigue after PT last Friday. PT-OP-D Balance Start: 07/15/22 15:33 Freq: Status: Active Protocol: Document 07/15/22 07:30 AMB (Rec: 07/15/22 15:35 AMB [id number]) Balance Tests Single Limb Standing Single Limb- Right 7 Single Limb- Left 6 increased ankle sway PT-OP-G Mobility & Gait Start: 07/14/22 21:47 Freq: Status: Active Protocol: Document 07/15/22 07:30 AMB (Rec: 07/15/22 15:33 AMB [id number]) OP Gait Assessment Comments Gait Comments Pt reports she has an AFO that she does not use. She inverts her ankle excessivly during the swing phase of gait . PT-OP-J Posture/Palpation/Skin Start: 07/14/22 21:47 Freq: Status: Active Protocol: Document 07/15/22 07:30 AMB (Rec: 07/15/22 15:33 AMB [id number]) Palpation Assessment Location low back Palpation Details tenderness and tension worst at low lumbar sacrum PT-OP-M Strength Start: 07/14/22 21:47 Freq: Status: Active Protocol: Document 07/15/22 07:57 AMB (Rec: 07/15/22 08:20 AMB [id number]) Hip Strength Hip Manual Muscle Testing Right Flexion (L2) 4+ Good+ Extension (S1) 4+ Good+ Abduction 4+ Good+ Left Flexion (L2) 3 Fair Extension (S1) 3- Fair- Abduction 3- Fair- Knee Strength Knee Manual Muscle Testing Right Flexion (S2) 5 Normal Extension (L3) 5 Normal Left Flexion (S2) 4+ Good+ Extension (L3) 4 Good Ankle/Foot Strength Ankle and Foot Manual Muscle Testing Right Dorsiflexion (L4) 5 Normal Plantarflexion (S1) 5 Normal Inversion 5 Normal Eversion (S1) 5 Normal Left Dorsiflexion (L4) 4 Good Plantarflexion (S1) 4 Good Inversion 4 Good Eversion (S1) 3+ Fair+ PT-OP-Q Treatments Start: 07/14/22 21:47 Freq: Status: Active Protocol: Document 08/16/22 21:07 AMB (Rec: 08/17/22 21:19 AMB [id number]) Gym Equipment Shuttle Recovery Bilateral Heel Raises Resistance 25 Reps/Time 2x10 Unilateral Squats Details L Resistance 25 Reps/Time 2x10 Bilateral Squats Resistance 50 Reps/Time 2x10 Therapeutic Exercises Supine Exercises hip flexor stretch Side left Reps/Minutes 30x3 TA supine march Reps/Minutes 10 Comments cues for breath, challenging to lift L leg Standing Exercises hamstring stretch Standing Exercise Name on stair Reps/Minutes 2x30 heel raises Standing Exercise Name double heel raise, single leg down Reps/Minutes 10 blue foam Standing Exercise Name challenging for ankles mini lunges Reps/Minutes 10x2 PT-OP-R Modalities Start: 07/14/22 21:47 Freq: Status: Active Protocol: Document 08/07/22 09:02 AMB (Rec: 08/07/22 09:03 AMB [id number]) Electric Stimulation Electric Stimulation Fijian Stimulation Body Location L tib anterior Duration (Minutes) 10 Comments with toe raises PT-OP-T Assessment and Plan Start: 07/14/22 21:47 Freq: Status: Active Protocol: Document 08/16/22 13:41 AMB (Rec: 08/16/22 14:29 AMB [id number]) Physical Therapy Assessment Goals Gait Short Term Goal (STG) Neelima will ambulate for 6 minutes over uneven terrain including grass, gravel and curb steps without exhibiting foot drop. STG Duration 5 weeks Buffing And Sueding Machine Operator Goal (LTG) Neelima will ascend and descend 3 stairs without railing usage so that she could carry something in her arms on stairs. LTG Duration 10 weeks Two Impairment Strength Short Term Goal (STG) Neelima will improve her strength in her L LE so that she can perform a floor transfer without UE support. STG Duration 5 weeks Snf Goal (LTG) Neelima will be independent and consistent with a HEP for core, L LE strengthening, and back stretching. LTG Duration 10 weeks One Impairment Back pain Short Term Goal (STG) Neelima will roll over in bed without back spasms. STG Duration 5 weeks Buffing And Sueding Machine Operator Goal (LTG) Neelima will walk for 1 mile without an increase in back pain. LTG Duration 10 weeks Assessment Summary Assessment Neelima continues to have back spasms, but better when wearing good shoes and making it a priority to move throughout her day, however when she does yardowkr and walks too much then fatigue increases significantly. Pt has been doing hip flexor stretching and will benefit from continued ankle/balance strengthening. Physical Therapy Plan Frequency and Duration Frequency of Treatment 2x/Week Duration of treatment (weeks) 10 Plan of Care Start Date 07/15/22 Plan of Care End Date 09/23/22 Therapeutic Interventions Therapeutic Interventions Balance Training,Gait Training ,Home Exercise Program,Manual Therapy,Neuromuscular Re- education,Self-Care/Home Management,Therapeutic Activities,Therapeutic Exercises Modalities Cold Pack/Ice Massage,Electric Stimulation,Hot Packs Next Visit Focus/Plan Next Note Type Treatment Note Next Visit Plan Begin with core stabilization, ankle strengthening, balance training. Progress to stairs, establish lumbar stretching HEP.
--- NOTE | 2022-08-19 15:55 | PT.OTN ---
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, subsequent encounter (08/19/22) Physical Therapy Treatment Note PT-OP-A Visit Information Start: 07/14/22 21:47 Freq: Status: Active Protocol: Document 08/19/22 08:16 AMB (Rec: 08/19/22 08:59 AMB [id number]) Out-Patient Physical Therapy Visit Information Visit Information Visit Type Treatment Note Visit Start Time 08:15 Visit Stop Time 09:00 Total Visit Minutes 45 Visit Number 9 PT-OP-B Current Condition Start: 07/14/22 21:47 Freq: Status: Active Protocol: Document 07/15/22 07:39 AMB (Rec: 07/15/22 07:54 AMB [id number]) Current Condition History of Current Condition Onset Date April Current Complaints Back going out after spinal cord stroke History of Current Condition L leg had excrutiating pain when trying to get pants on for two days in April. 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 L LE has impaired balance and strength. Challenged with floor transfer using the left leg. Did do 8 weeks of PT when spinal cord stroke first happened. Is currently working out in the pool but concerned about strengthening L leg. Stairs- tries to alternate but needs a railing to do so. Feels like putting a lot of strain on the low back because of the strength deficits. Feels like she's weaker now than when she finished PT. Personal Factors Other Personal Factors That May Effect T5 spinal cord stroke in 2019 Therapy/Recovery PT-OP-C Subjective Start: 07/14/22 21:47 Freq: Status: Active Protocol: Document 08/19/22 08:16 AMB (Rec: 08/19/22 08:59 AMB [id number]) OP-PT Subjective Patient Comments Patient Comments Pt reports increased fatigue after walking this weekend, had a difficult time stepping up while hiking on a large step. PT-OP-D Balance Start: 07/15/22 15:33 Freq: Status: Active Protocol: Document 07/15/22 07:30 AMB (Rec: 07/15/22 15:35 AMB [id number]) Balance Tests Single Limb Standing Single Limb- Right 7 Single Limb- Left 6 increased ankle sway PT-OP-G Mobility & Gait Start: 07/14/22 21:47 Freq: Status: Active Protocol: Document 07/15/22 07:30 AMB (Rec: 07/15/22 15:33 AMB [id number]) OP Gait Assessment Comments Gait Comments Pt reports she has an AFO that she does not use. She inverts her ankle excessivly during the swing phase of gait . PT-OP-J Posture/Palpation/Skin Start: 07/14/22 21:47 Freq: Status: Active Protocol: Document 07/15/22 07:30 AMB (Rec: 07/15/22 15:33 AMB [id number]) Palpation Assessment Location low back Palpation Details tenderness and tension worst at low lumbar sacrum PT-OP-M Strength Start: 07/14/22 21:47 Freq: Status: Active Protocol: Document 07/15/22 07:57 AMB (Rec: 07/15/22 08:20 AMB [id number]) Hip Strength Hip Manual Muscle Testing Right Flexion (L2) 4+ Good+ Extension (S1) 4+ Good+ Abduction 4+ Good+ Left Flexion (L2) 3 Fair Extension (S1) 3- Fair- Abduction 3- Fair- Knee Strength Knee Manual Muscle Testing Right Flexion (S2) 5 Normal Extension (L3) 5 Normal Left Flexion (S2) 4+ Good+ Extension (L3) 4 Good Ankle/Foot Strength Ankle and Foot Manual Muscle Testing Right Dorsiflexion (L4) 5 Normal Plantarflexion (S1) 5 Normal Inversion 5 Normal Eversion (S1) 5 Normal Left Dorsiflexion (L4) 4 Good Plantarflexion (S1) 4 Good Inversion 4 Good Eversion (S1) 3+ Fair+ PT-OP-Q Treatments Start: 07/14/22 21:47 Freq: Status: Active Protocol: Document 08/19/22 15:45 AMB (Rec: 08/19/22 15:51 AMB [id number]) Gym Equipment Shuttle Recovery Bilateral Heel Raises Resistance 25 Reps/Time 2x10 Unilateral Squats Details L Resistance 25 Reps/Time 2x10 Bilateral Squats Resistance 50 Reps/Time 3x10 Therapeutic Exercises Supine Exercises hip flexor stretch Side left Reps/Minutes 30x3 Sidelying Exercises clam Side left Reps/Minutes 20 Standing Exercises stairs Standing Exercise Name 6, then 8, then 12 Comments unable without UE support, tried trekking poles heel raises Standing Exercise Name double heel raise, single leg down Reps/Minutes 10 Neuro Re-Education Treatment Balance Activities modified tandme Details with trekking poles Reps/Duration 5 min 1 Details single leg stance with trekking poles Reps/Duration 5 min wiht rests Other Activities 1 Details hurdles Reps/Duration 10 min Comments wiht foam pods, challenging PT-OP-R Modalities Start: 07/14/22 21:47 Freq: Status: Active Protocol: Document 08/07/22 09:02 AMB (Rec: 08/07/22 09:03 AMB [id number]) Electric Stimulation Electric Stimulation Bangladeshi Stimulation Body Location L tib anterior Duration (Minutes) 10 Comments with toe raises PT-OP-T Assessment and Plan Start: 07/14/22 21:47 Freq: Status: Active Protocol: Document 08/19/22 08:16 AMB (Rec: 08/19/22 08:59 AMB [id number]) Physical Therapy Assessment Goals Gait Short Term Goal (STG) Neelima will ambulate for 6 minutes over uneven terrain including grass, gravel and curb steps without exhibiting foot drop. STG Duration 5 weeks Glazier Helper Goal (LTG) Neelima will ascend and descend 3 stairs without railing usage so that she could carry something in her arms on stairs. LTG Duration 10 weeks Two Impairment Strength Short Term Goal (STG) Neelima will improve her strength in her L LE so that she can perform a floor transfer without UE support. STG Duration 5 weeks Halfway Goal (LTG) Neelima will be independent and consistent with a HEP for core, L LE strengthening, and back stretching. LTG Duration 10 weeks One Impairment Back pain Short Term Goal (STG) Neelima will roll over in bed without back spasms. STG Duration MET Glazier Helper Goal (LTG) Neelima will walk for 1 mile without an increase in back pain. LTG Duration MET Assessment Summary Assessment Neelima is struggling with higher level balance activities, but her back spasms have lessened. She notes that she struggled with stepping up with either leg and did significantly better with trekking poles, suggested purchasing trekking poles if she's going to be hiking on uneven terrain. Physical Therapy Plan Frequency and Duration Frequency of Treatment 2x/Week Duration of treatment (weeks) 10 Plan of Care Start Date 07/15/22 Plan of Care End Date 09/23/22 Therapeutic Interventions Therapeutic Interventions Balance Training,Gait Training ,Home Exercise Program,Manual Therapy,Neuromuscular Re- education,Self-Care/Home Management,Therapeutic Activities,Therapeutic Exercises Modalities Cold Pack/Ice Massage,Electric Stimulation,Hot Packs Next Visit Focus/Plan Next Note Type Treatment Note Next Visit Plan Begin with core stabilization, ankle strengthening, balance training. Progress to stairs, establish lumbar stretching HEP.
--- NOTE | 2022-08-21 09:48 | PT.OTN ---
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, subsequent encounter (08/21/22) Physical Therapy Treatment Note PT-OP-A Visit Information Start: 07/14/22 21:47 Freq: Status: Active Protocol: Document 08/21/22 08:51 AMB (Rec: 08/21/22 09:48 AMB [id number]) Out-Patient Physical Therapy Visit Information Visit Information Visit Type Treatment Note Visit Start Time 09:00 Visit Stop Time 09:45 Total Visit Minutes 45 Visit Number 10 PT-OP-B Current Condition Start: 07/14/22 21:47 Freq: Status: Active Protocol: Document 07/15/22 07:39 AMB (Rec: 07/15/22 07:54 AMB [id number]) Current Condition History of Current Condition Onset Date April Current Complaints Back going out after spinal cord stroke History of Current Condition L leg had excrutiating pain when trying to get pants on for two days in April. 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 L LE has impaired balance and strength. Challenged with floor transfer using the left leg. Did do 8 weeks of PT when spinal cord stroke first happened. Is currently working out in the pool but concerned about strengthening L leg. Stairs- tries to alternate but needs a railing to do so. Feels like putting a lot of strain on the low back because of the strength deficits. Feels like she's weaker now than when she finished PT. Personal Factors Other Personal Factors That May Effect T5 spinal cord stroke in 2019 Therapy/Recovery PT-OP-C Subjective Start: 07/14/22 21:47 Freq: Status: Active Protocol: Document 08/21/22 08:51 AMB (Rec: 08/21/22 09:48 AMB [id number]) OP-PT Subjective Patient Comments Patient Comments Pt doing well today. Ordered trekking poles PT-OP-D Balance Start: 07/15/22 15:33 Freq: Status: Active Protocol: Document 07/15/22 07:30 AMB (Rec: 07/15/22 15:35 AMB [id number]) Balance Tests Single Limb Standing Single Limb- Right 7 Single Limb- Left 6 increased ankle sway PT-OP-G Mobility & Gait Start: 07/14/22 21:47 Freq: Status: Active Protocol: Document 07/15/22 07:30 AMB (Rec: 07/15/22 15:33 AMB [id number]) OP Gait Assessment Comments Gait Comments Pt reports she has an AFO that she does not use. She inverts her ankle excessivly during the swing phase of gait . PT-OP-J Posture/Palpation/Skin Start: 07/14/22 21:47 Freq: Status: Active Protocol: Document 07/15/22 07:30 AMB (Rec: 07/15/22 15:33 AMB [id number]) Palpation Assessment Location low back Palpation Details tenderness and tension worst at low lumbar sacrum PT-OP-M Strength Start: 07/14/22 21:47 Freq: Status: Active Protocol: Document 07/15/22 07:57 AMB (Rec: 07/15/22 08:20 AMB [id number]) Hip Strength Hip Manual Muscle Testing Right Flexion (L2) 4+ Good+ Extension (S1) 4+ Good+ Abduction 4+ Good+ Left Flexion (L2) 3 Fair Extension (S1) 3- Fair- Abduction 3- Fair- Knee Strength Knee Manual Muscle Testing Right Flexion (S2) 5 Normal Extension (L3) 5 Normal Left Flexion (S2) 4+ Good+ Extension (L3) 4 Good Ankle/Foot Strength Ankle and Foot Manual Muscle Testing Right Dorsiflexion (L4) 5 Normal Plantarflexion (S1) 5 Normal Inversion 5 Normal Eversion (S1) 5 Normal Left Dorsiflexion (L4) 4 Good Plantarflexion (S1) 4 Good Inversion 4 Good Eversion (S1) 3+ Fair+ PT-OP-Q Treatments Start: 07/14/22 21:47 Freq: Status: Active Protocol: Document 08/21/22 08:51 AMB (Rec: 08/21/22 09:48 AMB [id number]) Therapeutic Exercises Supine Exercises hip flexor stretch Side left Reps/Minutes 30x3 TA supine march Reps/Minutes 10 Comments cues for breath, challenging to lift L leg LTR Reps/Minutes 10 Standing Exercises stairs Standing Exercise Name 6, Reps/Minutes 2x10 Comments light UE support heel raises Standing Exercise Name double heel raise, single leg down Reps/Minutes 2x10 Neuro Re-Education Treatment Balance Activities bosu ball balance Details challenging NBOS intermittent UE touch down 1 Details single leg stance with trekking poles Reps/Duration 5 min wiht rests PT-OP-R Modalities Start: 07/14/22 21:47 Freq: Status: Active Protocol: Document 08/07/22 09:02 AMB (Rec: 08/07/22 09:03 AMB [id number]) Electric Stimulation Electric Stimulation [place] Stimulation Body Location L tib anterior Duration (Minutes) 10 Comments with toe raises PT-OP-T Assessment and Plan Start: 07/14/22 21:47 Freq: Status: Active Protocol: Document 08/21/22 08:51 AMB (Rec: 08/21/22 09:48 AMB [id number]) Physical Therapy Assessment Goals Gait Short Term Goal (STG) Neelima will ambulate for 6 minutes over uneven terrain including grass, gravel and curb steps without exhibiting foot drop. STG Duration 5 weeks Health Education Specialist Goal (LTG) Neelima will ascend and descend 3 stairs without railing usage so that she could carry something in her arms on stairs. LTG Duration 10 weeks Two Impairment Strength Short Term Goal (STG) Neelima will improve her strength in her L LE so that she can perform a floor transfer without UE support. STG Duration 5 weeks Health Education Specialist Goal (LTG) Neelima will be independent and consistent with a HEP for core, L LE strengthening, and back stretching. LTG Duration 10 weeks One Impairment Back pain Short Term Goal (STG) Neelima will roll over in bed without back spasms. STG Duration MET Skilled Nursing Goal (LTG) Neelima will walk for 1 mile without an increase in back pain. LTG Duration MET Assessment Summary Assessment Neelima is doing well with her program, continues to need to strengthen lower leg and improve balance to reach her higher level activity goals. Physical Therapy Plan Frequency and Duration Frequency of Treatment 2x/Week Duration of treatment (weeks) 10 Plan of Care Start Date 07/15/22 Plan of Care End Date 09/23/22 Therapeutic Interventions Therapeutic Interventions Balance Training,Gait Training ,Home Exercise Program,Manual Therapy,Neuromuscular Re- education,Self-Care/Home Management,Therapeutic Activities,Therapeutic Exercises Modalities Cold Pack/Ice Massage,Electric Stimulation,Hot Packs Next Visit Focus/Plan Next Note Type Treatment Note Next Visit Plan Begin with core stabilization, ankle strengthening, balance training. Progress to stairs, establish lumbar stretching HEP.
--- NOTE | 2022-08-27 08:26 | PT.OTN ---
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, subsequent encounter (08/27/22) Physical Therapy Treatment Note PT-OP-A Visit Information Start: 07/14/22 21:47 Freq: Status: Active Protocol: Document 08/27/22 07:27 AMB (Rec: 08/27/22 08:12 AMB [id number]) Out-Patient Physical Therapy Visit Information Visit Information Visit Type Treatment Note Visit Start Time 07:30 Visit Stop Time 08:15 Total Visit Minutes 45 Visit Number 11 PT-OP-B Current Condition Start: 07/14/22 21:47 Freq: Status: Active Protocol: Document 07/15/22 07:39 AMB (Rec: 07/15/22 07:54 AMB [id number]) Current Condition History of Current Condition Onset Date April Current Complaints Back going out after spinal cord stroke History of Current Condition L leg had excrutiating pain when trying to get pants on for two days in April. 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 L LE has impaired balance and strength. Challenged with floor transfer using the left leg. Did do 8 weeks of PT when spinal cord stroke first happened. Is currently working out in the pool but concerned about strengthening L leg. Stairs- tries to alternate but needs a railing to do so. Feels like putting a lot of strain on the low back because of the strength deficits. Feels like she's weaker now than when she finished PT. Personal Factors Other Personal Factors That May Effect T5 spinal cord stroke in 2019 Therapy/Recovery PT-OP-C Subjective Start: 07/14/22 21:47 Freq: Status: Active Protocol: Document 08/27/22 07:27 AMB (Rec: 08/27/22 08:12 AMB [id number]) OP-PT Subjective Patient Comments Patient Comments Pt got her poles, went on a walk, ended up having a lot of difficulty doing a step about 8. PT-OP-D Balance Start: 07/15/22 15:33 Freq: Status: Active Protocol: Document 07/15/22 07:30 AMB (Rec: 07/15/22 15:35 AMB [id number]) Balance Tests Single Limb Standing Single Limb- Right 7 Single Limb- Left 6 increased ankle sway PT-OP-G Mobility & Gait Start: 07/14/22 21:47 Freq: Status: Active Protocol: Document 07/15/22 07:30 AMB (Rec: 07/15/22 15:33 AMB [id number]) OP Gait Assessment Comments Gait Comments Pt reports she has an AFO that she does not use. She inverts her ankle excessivly during the swing phase of gait . PT-OP-J Posture/Palpation/Skin Start: 07/14/22 21:47 Freq: Status: Active Protocol: Document 07/15/22 07:30 AMB (Rec: 07/15/22 15:33 AMB [id number]) Palpation Assessment Location low back Palpation Details tenderness and tension worst at low lumbar sacrum PT-OP-M Strength Start: 07/14/22 21:47 Freq: Status: Active Protocol: Document 07/15/22 07:57 AMB (Rec: 07/15/22 08:20 AMB [id number]) Hip Strength Hip Manual Muscle Testing Right Flexion (L2) 4+ Good+ Extension (S1) 4+ Good+ Abduction 4+ Good+ Left Flexion (L2) 3 Fair Extension (S1) 3- Fair- Abduction 3- Fair- Knee Strength Knee Manual Muscle Testing Right Flexion (S2) 5 Normal Extension (L3) 5 Normal Left Flexion (S2) 4+ Good+ Extension (L3) 4 Good Ankle/Foot Strength Ankle and Foot Manual Muscle Testing Right Dorsiflexion (L4) 5 Normal Plantarflexion (S1) 5 Normal Inversion 5 Normal Eversion (S1) 5 Normal Left Dorsiflexion (L4) 4 Good Plantarflexion (S1) 4 Good Inversion 4 Good Eversion (S1) 3+ Fair+ PT-OP-Q Treatments Start: 07/14/22 21:47 Freq: Status: Active Protocol: Document 08/27/22 07:27 AMB (Rec: 08/27/22 08:12 AMB [id number]) Gym Equipment Shuttle Recovery Bilateral Heel Raises Resistance 25 Reps/Time 2x10 Unilateral Squats Details L Resistance 50 Reps/Time 5, Bilateral Squats Resistance 50 Reps/Time 3x10 Therapeutic Exercises Supine Exercises hip flexor stretch Side left Reps/Minutes 30x3 Standing Exercises stairs Standing Exercise Name 6, Reps/Minutes 2x10 Comments trekkin gpoles heel raises Standing Exercise Name double heel raise, single leg down Reps/Minutes 2x10 blue foam Standing Exercise Name challenging for ankles Neuro Re-Education Treatment Balance Activities bosu ball balance Details challenging NBOS intermittent UE touch down modified tandme Details with trekking poles Reps/Duration 5 min 1 Details single leg stance with trekking poles Reps/Duration 5 min wiht rests PT-OP-R Modalities Start: 07/14/22 21:47 Freq: Status: Active Protocol: Document 08/07/22 09:02 AMB (Rec: 08/07/22 09:03 AMB [id number]) Electric Stimulation Electric Stimulation [place]eless Stimulation Body Location L tib anterior Duration (Minutes) 10 Comments with toe raises PT-OP-T Assessment and Plan Start: 07/14/22 21:47 Freq: Status: Active Protocol: Document 08/27/22 07:27 AMB (Rec: 08/27/22 08:12 AMB [id number]) Physical Therapy Assessment Goals Gait Short Term Goal (STG) Neelima will ambulate for 6 minutes over uneven terrain including grass, gravel and curb steps without exhibiting foot drop. STG Duration 5 weeks Ad Compositor Goal (LTG) Neelima will ascend and descend 3 stairs without railing usage so that she could carry something in her arms on stairs. LTG Duration 10 weeks Two Impairment Strength Short Term Goal (STG) Neelima will improve her strength in her L LE so that she can perform a floor transfer without UE support. STG Duration 5 weeks Ad Compositor Goal (LTG) Neelima will be independent and consistent with a HEP for core, L LE strengthening, and back stretching. LTG Duration 10 weeks One Impairment Back pain Short Term Goal (STG) Neelima will roll over in bed without back spasms. STG Duration MET [facility] Goal (LTG) Neelima will walk for 1 mile without an increase in back pain. LTG Duration MET Assessment Summary Assessment Neelima is doing well with step ups but continues to struggle with keeping up with colleagues. Physical Therapy Plan Frequency and Duration Frequency of Treatment 2x/Week Duration of treatment (weeks) 10 Plan of Care Start Date 07/15/22 Plan of Care End Date 09/23/22 Therapeutic Interventions Therapeutic Interventions Balance Training,Gait Training ,Home Exercise Program,Manual Therapy,Neuromuscular Re- education,Self-Care/Home Management,Therapeutic Activities,Therapeutic Exercises Modalities Cold Pack/Ice Massage,Electric Stimulation,Hot Packs Next Visit Focus/Plan Next Note Type Treatment Note Next Visit Plan Begin with core stabilization, ankle strengthening, balance training. Progress to stairs, establish lumbar stretching HEP.
--- NOTE | 2022-09-06 21:44 | PT.OTN ---
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, subsequent encounter (09/06/22) Physical Therapy Treatment Note PT-OP-A Visit Information Start: 07/14/22 21:47 Freq: Status: Active Protocol: Document 09/06/22 08:22 AMB (Rec: 09/06/22 08:54 AMB [id number]) Out-Patient Physical Therapy Visit Information Visit Information Visit Type Treatment Note Visit Start Time 08:15 Visit Stop Time 09:00 Total Visit Minutes 45 Visit Number 12 PT-OP-B Current Condition Start: 07/14/22 21:47 Freq: Status: Active Protocol: Document 07/15/22 07:39 AMB (Rec: 07/15/22 07:54 AMB [id number]) Current Condition History of Current Condition Onset Date April Current Complaints Back going out after spinal cord stroke History of Current Condition L leg had excrutiating pain when trying to get pants on for two days in April. 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 L LE has impaired balance and strength. Challenged with floor transfer using the left leg. Did do 8 weeks of PT when spinal cord stroke first happened. Is currently working out in the pool but concerned about strengthening L leg. Stairs- tries to alternate but needs a railing to do so. Feels like putting a lot of strain on the low back because of the strength deficits. Feels like she's weaker now than when she finished PT. Personal Factors Other Personal Factors That May Effect T5 spinal cord stroke in 2019 Therapy/Recovery PT-OP-C Subjective Start: 07/14/22 21:47 Freq: Status: Active Protocol: Document 09/06/22 08:22 AMB (Rec: 09/06/22 08:54 AMB [id number]) OP-PT Subjective Patient Comments Patient Comments Went on a trip and had a long to walk [place] the airport which was challenging with the back and the legs. PT-OP-D Balance Start: 07/15/22 15:33 Freq: Status: Active Protocol: Document 07/15/22 07:30 AMB (Rec: 07/15/22 15:35 AMB [id number]) Balance Tests Single Limb Standing Single Limb- Right 7 Single Limb- Left 6 increased ankle sway PT-OP-G Mobility & Gait Start: 07/14/22 21:47 Freq: Status: Active Protocol: Document 07/15/22 07:30 AMB (Rec: 07/15/22 15:33 AMB [id number]) OP Gait Assessment Comments Gait Comments Pt reports she has an AFO that she does not use. She inverts her ankle excessivly during the swing phase of gait . PT-OP-J Posture/Palpation/Skin Start: 07/14/22 21:47 Freq: Status: Active Protocol: Document 07/15/22 07:30 AMB (Rec: 07/15/22 15:33 AMB [id number]) Palpation Assessment Location low back Palpation Details tenderness and tension worst at low lumbar sacrum PT-OP-M Strength Start: 07/14/22 21:47 Freq: Status: Active Protocol: Document 07/15/22 07:57 AMB (Rec: 07/15/22 08:20 AMB [id number]) Hip Strength Hip Manual Muscle Testing Right Flexion (L2) 4+ Good+ Extension (S1) 4+ Good+ Abduction 4+ Good+ Left Flexion (L2) 3 Fair Extension (S1) 3- Fair- Abduction 3- Fair- Knee Strength Knee Manual Muscle Testing Right Flexion (S2) 5 Normal Extension (L3) 5 Normal Left Flexion (S2) 4+ Good+ Extension (L3) 4 Good Ankle/Foot Strength Ankle and Foot Manual Muscle Testing Right Dorsiflexion (L4) 5 Normal Plantarflexion (S1) 5 Normal Inversion 5 Normal Eversion (S1) 5 Normal Left Dorsiflexion (L4) 4 Good Plantarflexion (S1) 4 Good Inversion 4 Good Eversion (S1) 3+ Fair+ PT-OP-Q Treatments Start: 07/14/22 21:47 Freq: Status: Active Protocol: Document 09/06/22 08:22 AMB (Rec: 09/06/22 08:54 AMB [id number]) Therapeutic Exercises Sidelying Exercises clam Side left Reps/Minutes 20 Standing Exercises sit to stand Reps/Minutes 10 Comments focus on equal weightbearing hamstring stretch Standing Exercise Name on stair Reps/Minutes 2x30 heel raises Standing Exercise Name double heel raise, single leg down Reps/Minutes 2x10 blue foam Standing Exercise Name challenging for ankles mini lunges Reps/Minutes 10 Other Exercises cristina pose Other Exercise Name sidebending Reps/Minutes 30x2 Neuro Re-Education Treatment Balance Activities bosu ball balance Details challenging NBOS intermittent UE touch down modified tandme Details with trekking poles Reps/Duration 5 min Other Activities 1 Details hurdles Reps/Duration 10 min Comments wiht foam pods, challenging PT-OP-R Modalities Start: 07/14/22 21:47 Freq: Status: Active Protocol: Document 08/07/22 09:02 AMB (Rec: 08/07/22 09:03 AMB [id number]) Electric Stimulation Electric Stimulation [place] Stimulation Body Location L tib anterior Duration (Minutes) 10 Comments with toe raises PT-OP-T Assessment and Plan Start: 07/14/22 21:47 Freq: Status: Active Protocol: Document 09/06/22 08:22 AMB (Rec: 09/06/22 08:54 AMB [id number]) Physical Therapy Assessment Goals Gait Short Term Goal (STG) Neelima will ambulate for 6 minutes over uneven terrain including grass, gravel and curb steps without exhibiting foot drop. STG Duration 5 weeks Car Supplier Goal (LTG) Neelima will ascend and descend 3 stairs without railing usage so that she could carry something in her arms on stairs. LTG Duration 10 weeks Two Impairment Strength Short Term Goal (STG) Neelima will improve her strength in her L LE so that she can perform a floor transfer without UE support. STG Duration 5 weeks Car Supplier Goal (LTG) Neelima will be independent and consistent with a HEP for core, L LE strengthening, and back stretching. LTG Duration 10 weeks One Impairment Back pain Short Term Goal (STG) Neelima will roll over in bed without back spasms. STG Duration MET Longterm Goal (LTG) Neelima will walk for 1 mile without an increase in back pain. LTG Duration MET Assessment Summary Assessment Gait speed and ability to carry things during the airport trip was challenging. Would recommend continued PT to work on balance and strength so that pt can be more functional, pt has high level goals and walking for distance and at higher speed/ complexity is challenging. Physical Therapy Plan Frequency and Duration Frequency of Treatment 2x/Week Duration of treatment (weeks) 10 Plan of Care Start Date 07/15/22 Plan of Care End Date 09/23/22 Therapeutic Interventions Therapeutic Interventions Balance Training,Gait Training ,Home Exercise Program,Manual Therapy,Neuromuscular Re- education,Self-Care/Home Management,Therapeutic Activities,Therapeutic Exercises Modalities Cold Pack/Ice Massage,Electric Stimulation,Hot Packs Next Visit Focus/Plan Next Note Type Progress Note Next Visit Plan Begin with core stabilization, ankle strengthening, balance training. Progress to stairs, establish lumbar stretching HEP.
--- NOTE | 2022-09-11 18:46 | PT.OTN ---
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, subsequent encounter (09/11/22) Physical Therapy Treatment Note PT-OP-A Visit Information Start: 07/14/22 21:47 Freq: Status: Active Protocol: Document 09/11/22 07:34 AMB (Rec: 09/11/22 08:25 AMB [id number]) Out-Patient Physical Therapy Visit Information Visit Information Visit Type Progress Note Visit Start Time 07:30 Visit Stop Time 08:15 Total Visit Minutes 45 Visit Number 13 PT-OP-B Current Condition Start: 07/14/22 21:47 Freq: Status: Active Protocol: Document 07/15/22 07:39 AMB (Rec: 07/15/22 07:54 AMB [id number]) Current Condition History of Current Condition Onset Date April Current Complaints Back going out after spinal cord stroke History of Current Condition L leg had excrutiating pain when trying to get pants on for two days in April. 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 L LE has impaired balance and strength. Challenged with floor transfer using the left leg. Did do 8 weeks of PT when spinal cord stroke first happened. Is currently working out in the pool but concerned about strengthening L leg. Stairs- tries to alternate but needs a railing to do so. Feels like putting a lot of strain on the low back because of the strength deficits. Feels like she's weaker now than when she finished PT. Personal Factors Other Personal Factors That May Effect T5 spinal cord stroke in 2019 Therapy/Recovery PT-OP-C Subjective Start: 07/14/22 21:47 Freq: Status: Active Protocol: Document 09/11/22 07:34 AMB (Rec: 09/11/22 08:25 AMB [id number]) OP-PT Subjective Patient Comments Patient Comments Pt is feeling better since on gabapentin now. PT-OP-D Balance Start: 07/15/22 15:33 Freq: Status: Active Protocol: Document 07/15/22 07:30 AMB (Rec: 07/15/22 15:35 AMB [id number]) Balance Tests Single Limb Standing Single Limb- Right 7 Single Limb- Left 6 increased ankle sway PT-OP-G Mobility & Gait Start: 07/14/22 21:47 Freq: Status: Active Protocol: Document 07/15/22 07:30 AMB (Rec: 07/15/22 15:33 AMB [id number]) OP Gait Assessment Comments Gait Comments Pt reports she has an AFO that she does not use. She inverts her ankle excessivly during the swing phase of gait . PT-OP-J Posture/Palpation/Skin Start: 07/14/22 21:47 Freq: Status: Active Protocol: Document 07/15/22 07:30 AMB (Rec: 07/15/22 15:33 AMB [id number]) Palpation Assessment Location low back Palpation Details tenderness and tension worst at low lumbar sacrum PT-OP-M Strength Start: 07/14/22 21:47 Freq: Status: Active Protocol: Document 07/15/22 07:57 AMB (Rec: 07/15/22 08:20 AMB [id number]) Hip Strength Hip Manual Muscle Testing Right Flexion (L2) 4+ Good+ Extension (S1) 4+ Good+ Abduction 4+ Good+ Left Flexion (L2) 3 Fair Extension (S1) 3- Fair- Abduction 3- Fair- Knee Strength Knee Manual Muscle Testing Right Flexion (S2) 5 Normal Extension (L3) 5 Normal Left Flexion (S2) 4+ Good+ Extension (L3) 4 Good Ankle/Foot Strength Ankle and Foot Manual Muscle Testing Right Dorsiflexion (L4) 5 Normal Plantarflexion (S1) 5 Normal Inversion 5 Normal Eversion (S1) 5 Normal Left Dorsiflexion (L4) 4 Good Plantarflexion (S1) 4 Good Inversion 4 Good Eversion (S1) 3+ Fair+ PT-OP-Q Treatments Start: 07/14/22 21:47 Freq: Status: Active Protocol: Document 09/11/22 07:30 AMB (Rec: 09/22/22 18:46 AMB [id number]) Gym Equipment Shuttle Recovery Bilateral Squats Resistance 50 Reps/Time 3x10 Shuttle Balance RED Details a/p and m/l Reps/Duration 10 min Comments less back pain today Therapeutic Exercises Supine Exercises hip flexor stretch Side left Reps/Minutes 30x3 Neuro Re-Education Treatment Balance Activities bosu ball balance Details challenging NBOS intermittent UE touch down Reps/Duration 10min PT-OP-R Modalities Start: 07/14/22 21:47 Freq: Status: Active Protocol: Document 08/07/22 09:02 AMB (Rec: 08/07/22 09:03 AMB [id number]) Electric Stimulation Electric Stimulation [place] Stimulation Body Location L tib anterior Duration (Minutes) 10 Comments with toe raises PT-OP-T Assessment and Plan Start: 07/14/22 21:47 Freq: Status: Active Protocol: Document 09/11/22 07:34 AMB (Rec: 09/11/22 08:25 AMB [id number]) Physical Therapy Assessment Goals Gait Short Term Goal (STG) Neelima will ambulate for 6 minutes over uneven terrain including grass, gravel and curb steps without exhibiting foot drop. STG Duration MET---after 1 mile pt notes more antalgic gait Nutrition Professor Goal (LTG) Neelima will ascend and descend 3 stairs without railing usage so that she could carry something in her arms on stairs. LTG Duration 10 weeks- needs intermittent UE support maya on decline Two Impairment Strength Short Term Goal (STG) Neelima will improve her strength in her L LE so that she can perform a floor transfer without UE support. STG Duration 5 weeks- doesn't need environmental support but does need UE support floor Nutrition Professor Goal (LTG) Neelima will be independent and consistent with a HEP for core, L LE strengthening, and back stretching. LTG Duration MET One Impairment Back pain Short Term Goal (STG) Neelima will roll over in bed without back spasms. STG Duration MET Detention Goal (LTG) Neelima will walk for 1 mile without an increase in back pain. LTG Duration MET Assessment Summary Assessment Pt continues to have fatigue in L LE especially eccentric control at ankle and hip. This makes controlling stairs challenging. Back spasms and nerve pain have improved with sitting on ball and hip flexor stretching. Pt will benefit from continued physical therapy to progress her eccentric strength and balance , given her goals of returning to high level of function re hiking, walking longer distances. Physical Therapy Plan Frequency and Duration Frequency of Treatment 1x/Week Duration of treatment (weeks) 8 Plan of Care Start Date 09/11/22 Plan of Care End Date 11/06/22 Therapeutic Interventions Therapeutic Interventions Balance Training,Gait Training ,Home Exercise Program,Manual Therapy,Neuromuscular Re- education,Self-Care/Home Management,Therapeutic Activities,Therapeutic Exercises Modalities Cold Pack/Ice Massage,Electric Stimulation,Hot Packs Next Visit Focus/Plan Next Note Type Progress Note Next Visit Plan Begin with core stabilization, ankle strengthening, balance training. Progress to stairs, establish lumbar stretching HEP.
--- NOTE | 2022-09-11 18:47 | PT.OPPOC ---
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 STG Duration MET---after 1 mile pt notes more antalgic gait Panelboard Operator Goal (LTG) Neelima will ascend and descend 3 stairs without railing usage so that she could carry something in her arms on stairs. LTG Duration 10 weeks- needs intermittent UE support maya on decline Two Impairment Strength Short Term Goal (STG) Neelima will improve her strength in her L LE so that she can perform a floor transfer without UE support. STG Duration 5 weeks- doesn't need environmental support but does need UE support floor Jail Goal (LTG) Neelima will be independent and consistent with a HEP for core, L LE strengthening, and back stretching. LTG Duration MET One Impairment Back pain Short Term Goal (STG) Neelima will roll over in bed without back spasms. STG Duration MET Jail Goal (LTG) Neelima will walk for 1 mile without an increase in back pain. LTG Duration MET Assessment Summary Assessment Pt continues to have fatigue in L LE especially eccentric control at ankle and hip. This makes controlling stairs challenging. Back spasms and nerve pain have improved with sitting on ball and hip flexor stretching. Pt will benefit from continued physical therapy to progress her eccentric strength and balance , given her goals of returning to high level of function re hiking, walking longer distances. Physical Therapy Plan Frequency and Duration Frequency of Treatment 1x/Week Duration of treatment (weeks) 8 Plan of Care Start Date 09/11/22 Plan of Care End Date 11/06/22 Therapeutic Interventions Therapeutic Interventions Balance Training,Gait Training ,Home Exercise Program,Manual Therapy,Neuromuscular Re- education,Self-Care/Home Management,Therapeutic Activities,Therapeutic Exercises Modalities Cold Pack/Ice Massage,Electric Stimulation,Hot Packs Next Visit Focus/Plan Next Note Type Progress Note Next Visit Plan Begin with core stabilization, ankle strengthening, balance training. Progress to stairs, establish lumbar stretching HEP. Plan of Care Dates Plan of Care Start Date 09/11/22 Plan of Care End Date 11/06/22 Electronically Signed by: Leti Mcdermott, PT 09/22/22 [id number] If you are in agreement with this Plan of Care, please return a signed and dated copy. I have reviewed this Plan of Care and certify that the skilled therapy services above are required to meet the patient?s needs. Physician Signature Date Printed Name and Credentials Clinical Instructor Signature Printed Name and Credentials
--- NOTE | 2022-09-25 15:56 | PT.OTN ---
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, subsequent encounter (09/25/22) Physical Therapy Treatment Note PT-OP-A Visit Information Start: 07/14/22 21:47 Freq: Status: Active Protocol: Document 09/25/22 07:35 AMB (Rec: 09/25/22 08:15 AMB [id number]) Out-Patient Physical Therapy Visit Information Visit Information Visit Type Treatment Note Visit Start Time 07:30 Visit Stop Time 08:15 Total Visit Minutes 45 Visit Number 14 PT-OP-B Current Condition Start: 07/14/22 21:47 Freq: Status: Active Protocol: Document 07/15/22 07:39 AMB (Rec: 07/15/22 07:54 AMB [id number]) Current Condition History of Current Condition Onset Date April Current Complaints Back going out after spinal cord stroke History of Current Condition L leg had excrutiating pain when trying to get pants on for two days in April. 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 L LE has impaired balance and strength. Challenged with floor transfer using the left leg. Did do 8 weeks of PT when spinal cord stroke first happened. Is currently working out in the pool but concerned about strengthening L leg. Stairs- tries to alternate but needs a railing to do so. Feels like putting a lot of strain on the low back because of the strength deficits. Feels like she's weaker now than when she finished PT. Personal Factors Other Personal Factors That May Effect T5 spinal cord stroke in 2019 Therapy/Recovery PT-OP-C Subjective Start: 07/14/22 21:47 Freq: Status: Active Protocol: Document 09/25/22 07:35 AMB (Rec: 09/25/22 08:15 AMB [id number]) OP-PT Subjective Patient Comments Patient Comments Pt reports a challenging day yesterday. PT-OP-D Balance Start: 07/15/22 15:33 Freq: Status: Active Protocol: Document 07/15/22 07:30 AMB (Rec: 07/15/22 15:35 AMB [id number]) Balance Tests Single Limb Standing Single Limb- Right 7 Single Limb- Left 6 increased ankle sway PT-OP-G Mobility & Gait Start: 07/14/22 21:47 Freq: Status: Active Protocol: Document 07/15/22 07:30 AMB (Rec: 07/15/22 15:33 AMB [id number]) OP Gait Assessment Comments Gait Comments Pt reports she has an AFO that she does not use. She inverts her ankle excessivly during the swing phase of gait . PT-OP-J Posture/Palpation/Skin Start: 07/14/22 21:47 Freq: Status: Active Protocol: Document 07/15/22 07:30 AMB (Rec: 07/15/22 15:33 AMB [id number]) Palpation Assessment Location low back Palpation Details tenderness and tension worst at low lumbar sacrum PT-OP-M Strength Start: 07/14/22 21:47 Freq: Status: Active Protocol: Document 07/15/22 07:57 AMB (Rec: 07/15/22 08:20 AMB [id number]) Hip Strength Hip Manual Muscle Testing Right Flexion (L2) 4+ Good+ Extension (S1) 4+ Good+ Abduction 4+ Good+ Left Flexion (L2) 3 Fair Extension (S1) 3- Fair- Abduction 3- Fair- Knee Strength Knee Manual Muscle Testing Right Flexion (S2) 5 Normal Extension (L3) 5 Normal Left Flexion (S2) 4+ Good+ Extension (L3) 4 Good Ankle/Foot Strength Ankle and Foot Manual Muscle Testing Right Dorsiflexion (L4) 5 Normal Plantarflexion (S1) 5 Normal Inversion 5 Normal Eversion (S1) 5 Normal Left Dorsiflexion (L4) 4 Good Plantarflexion (S1) 4 Good Inversion 4 Good Eversion (S1) 3+ Fair+ PT-OP-Q Treatments Start: 07/14/22 21:47 Freq: Status: Active Protocol: Document 09/25/22 07:35 AMB (Rec: 09/25/22 08:15 AMB [id number]) Therapeutic Exercises Supine Exercises hip flexor stretch Side left Reps/Minutes 30x3 Standing Exercises sit to stand Reps/Minutes 10 Comments focus on equal weightbearing stairs Standing Exercise Name 6, Reps/Minutes 2x10 Comments trekkin gpoles hamstring stretch Standing Exercise Name on stair Reps/Minutes 2x30 heel raises Standing Exercise Name double heel raise, single leg down Reps/Minutes 2x10 blue foam Standing Exercise Name challenging for ankles mini lunges Reps/Minutes 10 Neuro Re-Education Treatment Balance Activities bosu ball balance Details challenging NBOS intermittent UE touch down Reps/Duration 10min PT-OP-R Modalities Start: 07/14/22 21:47 Freq: Status: Active Protocol: Document 08/07/22 09:02 AMB (Rec: 08/07/22 09:03 AMB [id number]) Electric Stimulation Electric Stimulation [place] Stimulation Body Location L tib anterior Duration (Minutes) 10 Comments with toe raises PT-OP-T Assessment and Plan Start: 07/14/22 21:47 Freq: Status: Active Protocol: Document 09/25/22 07:35 AMB (Rec: 09/25/22 08:15 AMB [id number]) Physical Therapy Assessment Goals Gait Short Term Goal (STG) Neelima will ambulate for 6 minutes over uneven terrain including grass, gravel and curb steps without exhibiting foot drop. STG Duration MET---after 1 mile pt notes more antalgic gait Stars Coordinator Goal (LTG) Neelima will ascend and descend 3 stairs without railing usage so that she could carry something in her arms on stairs. LTG Duration 10 weeks- needs intermittent UE support maya on decline Two Impairment Strength Short Term Goal (STG) Neelima will improve her strength in her L LE so that she can perform a floor transfer without UE support. STG Duration 5 weeks- doesn't need environmental support but does need UE support floor Usp Goal (LTG) Neelima will be independent and consistent with a HEP for core, L LE strengthening, and back stretching. LTG Duration MET One Impairment Back pain Short Term Goal (STG) Neelima will roll over in bed without back spasms. STG Duration MET Usp Goal (LTG) Neelima will walk for 1 mile without an increase in back pain. LTG Duration MET Assessment Summary Assessment Pt continues to struggle with the emotional standpoint of having more disability re fatiguing quickly, pain. Encouarged pt to continue with strengthening but also to seek acceptance of her body that it is not he same as before her spinal cord stroke. Physical Therapy Plan Frequency and Duration Frequency of Treatment 1x/Week Duration of treatment (weeks) 8 Plan of Care Start Date 09/11/22 Plan of Care End Date 11/06/22 Therapeutic Interventions Therapeutic Interventions Balance Training,Gait Training ,Home Exercise Program,Manual Therapy,Neuromuscular Re- education,Self-Care/Home Management,Therapeutic Activities,Therapeutic Exercises Modalities Cold Pack/Ice Massage,Electric Stimulation,Hot Packs Next Visit Focus/Plan Next Note Type Progress Note Next Visit Plan Begin with core stabilization, ankle strengthening, balance training. Progress to stairs, establish lumbar stretching HEP.
--- NOTE | 2022-09-30 15:37 | PT.OTN ---
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, subsequent encounter (09/30/22) Physical Therapy Treatment Note PT-OP-A Visit Information Start: 07/14/22 21:47 Freq: Status: Active Protocol: Document 09/30/22 07:34 AMB (Rec: 09/30/22 08:15 AMB [id number]) Out-Patient Physical Therapy Visit Information Visit Information Visit Type Treatment Note Visit Start Time 07:30 Visit Stop Time 08:15 Total Visit Minutes 45 Visit Number 15 PT-OP-B Current Condition Start: 07/14/22 21:47 Freq: Status: Active Protocol: Document 07/15/22 07:39 AMB (Rec: 07/15/22 07:54 AMB [id number]) Current Condition History of Current Condition Onset Date April Current Complaints Back going out after spinal cord stroke History of Current Condition L leg had excrutiating pain when trying to get pants on for two days in April. 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 L LE has impaired balance and strength. Challenged with floor transfer using the left leg. Did do 8 weeks of PT when spinal cord stroke first happened. Is currently working out in the pool but concerned about strengthening L leg. Stairs- tries to alternate but needs a railing to do so. Feels like putting a lot of strain on the low back because of the strength deficits. Feels like she's weaker now than when she finished PT. Personal Factors Other Personal Factors That May Effect T5 spinal cord stroke in 2019 Therapy/Recovery PT-OP-C Subjective Start: 07/14/22 21:47 Freq: Status: Active Protocol: Document 09/30/22 10:48 AMB (Rec: 09/30/22 10:55 AMB [id number]) OP-PT Subjective Patient Comments Patient Comments Neelima is doing well, no new back pain, does need to move to avoid back pain. PT-OP-D Balance Start: 07/15/22 15:33 Freq: Status: Active Protocol: Document 07/15/22 07:30 AMB (Rec: 07/15/22 15:35 AMB [id number]) Balance Tests Single Limb Standing Single Limb- Right 7 Single Limb- Left 6 increased ankle sway PT-OP-G Mobility & Gait Start: 07/14/22 21:47 Freq: Status: Active Protocol: Document 07/15/22 07:30 AMB (Rec: 07/15/22 15:33 AMB [id number]) OP Gait Assessment Comments Gait Comments Pt reports she has an AFO that she does not use. She inverts her ankle excessivly during the swing phase of gait . PT-OP-J Posture/Palpation/Skin Start: 07/14/22 21:47 Freq: Status: Active Protocol: Document 07/15/22 07:30 AMB (Rec: 07/15/22 15:33 AMB [id number]) Palpation Assessment Location low back Palpation Details tenderness and tension worst at low lumbar sacrum PT-OP-M Strength Start: 07/14/22 21:47 Freq: Status: Active Protocol: Document 07/15/22 07:57 AMB (Rec: 07/15/22 08:20 AMB [id number]) Hip Strength Hip Manual Muscle Testing Right Flexion (L2) 4+ Good+ Extension (S1) 4+ Good+ Abduction 4+ Good+ Left Flexion (L2) 3 Fair Extension (S1) 3- Fair- Abduction 3- Fair- Knee Strength Knee Manual Muscle Testing Right Flexion (S2) 5 Normal Extension (L3) 5 Normal Left Flexion (S2) 4+ Good+ Extension (L3) 4 Good Ankle/Foot Strength Ankle and Foot Manual Muscle Testing Right Dorsiflexion (L4) 5 Normal Plantarflexion (S1) 5 Normal Inversion 5 Normal Eversion (S1) 5 Normal Left Dorsiflexion (L4) 4 Good Plantarflexion (S1) 4 Good Inversion 4 Good Eversion (S1) 3+ Fair+ PT-OP-Q Treatments Start: 07/14/22 21:47 Freq: Status: Active Protocol: Document 09/30/22 10:48 AMB (Rec: 09/30/22 10:55 AMB [id number]) Therapeutic Exercises Standing Exercises clock lunges Reps/Minutes 2x10 sit to stand Reps/Minutes 10 Comments focus on equal weightbearing stairs Standing Exercise Name 6, Reps/Minutes 2x10 Comments railings intermittent heel raises Standing Exercise Name double heel raise, single leg down Reps/Minutes 2x10 Other Exercises yoga trial Other Exercise Name downward dog to warrior transition Reps/Minutes 10 min Comments first rep pt needed light UE support but then improved with reps cristina pose Other Exercise Name sidebending Reps/Minutes 30x2 PT-OP-R Modalities Start: 07/14/22 21:47 Freq: Status: Active Protocol: Document 08/07/22 09:02 AMB (Rec: 08/07/22 09:03 AMB [id number]) Electric Stimulation Electric Stimulation Portuguese Stimulation Body Location L tib anterior Duration (Minutes) 10 Comments with toe raises PT-OP-T Assessment and Plan Start: 07/14/22 21:47 Freq: Status: Active Protocol: Document 09/30/22 07:34 AMB (Rec: 09/30/22 08:15 AMB [id number]) Physical Therapy Assessment Goals Gait Short Term Goal (STG) Neelima will ambulate for 6 minutes over uneven terrain including grass, gravel and curb steps without exhibiting foot drop. STG Duration MET---after 1 mile pt notes more antalgic gait Commander Internal Affairs Goal (LTG) Neelima will ascend and descend 3 stairs without railing usage so that she could carry something in her arms on stairs. LTG Duration 10 weeks- needs intermittent UE support maya on decline Two Impairment Strength Short Term Goal (STG) Neelima will improve her strength in her L LE so that she can perform a floor transfer without UE support. STG Duration 5 weeks- doesn't need environmental support but does need UE support floor Commander Internal Affairs Goal (LTG) Neelima will be independent and consistent with a HEP for core, L LE strengthening, and back stretching. LTG Duration MET One Impairment Back pain Short Term Goal (STG) Neelima will roll over in bed without back spasms. STG Duration MET Jail Goal (LTG) Neelima will walk for 1 mile without an increase in back pain. LTG Duration MET Assessment Summary Assessment Discussed community options for exercise. Consider yoga class at the pool vs online beginner class as pt is getting ready to d/c from PT. Physical Therapy Plan Frequency and Duration Frequency of Treatment 1x/Week Duration of treatment (weeks) 8 Plan of Care Start Date 09/11/22 Plan of Care End Date 11/06/22 Therapeutic Interventions Therapeutic Interventions Balance Training,Gait Training ,Home Exercise Program,Manual Therapy,Neuromuscular Re- education,Self-Care/Home Management,Therapeutic Activities,Therapeutic Exercises Modalities Cold Pack/Ice Massage,Electric Stimulation,Hot Packs Next Visit Focus/Plan Next Note Type Treatment Note
--- NOTE | 2022-10-01 15:36 | PT.OTN ---
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, subsequent encounter (09/30/22) Physical Therapy Treatment Note PT-OP-A Visit Information Start: 07/14/22 21:47 Freq: Status: Active Protocol: Document 09/30/22 07:34 AMB (Rec: 09/30/22 08:15 AMB [id number]) Out-Patient Physical Therapy Visit Information Visit Information Visit Type Treatment Note Visit Start Time 07:30 Visit Stop Time 08:15 Total Visit Minutes 45 Visit Number 15 PT-OP-B Current Condition Start: 07/14/22 21:47 Freq: Status: Active Protocol: Document 07/15/22 07:39 AMB (Rec: 07/15/22 07:54 AMB [id number]) Current Condition History of Current Condition Onset Date April Current Complaints Back going out after spinal cord stroke History of Current Condition L leg had excrutiating pain when trying to get pants on for two days in April. 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 L LE has impaired balance and strength. Challenged with floor transfer using the left leg. Did do 8 weeks of PT when spinal cord stroke first happened. Is currently working out in the pool but concerned about strengthening L leg. Stairs- tries to alternate but needs a railing to do so. Feels like putting a lot of strain on the low back because of the strength deficits. Feels like she's weaker now than when she finished PT. Personal Factors Other Personal Factors That May Effect T5 spinal cord stroke in 2019 Therapy/Recovery PT-OP-C Subjective Start: 07/14/22 21:47 Freq: Status: Active Protocol: Document 09/30/22 10:48 AMB (Rec: 09/30/22 10:55 AMB [id number]) OP-PT Subjective Patient Comments Patient Comments Neelima is doing well, no new back pain, does need to move to avoid back pain. PT-OP-D Balance Start: 07/15/22 15:33 Freq: Status: Active Protocol: Document 07/15/22 07:30 AMB (Rec: 07/15/22 15:35 AMB [id number]) Balance Tests Single Limb Standing Single Limb- Right 7 Single Limb- Left 6 increased ankle sway PT-OP-G Mobility & Gait Start: 07/14/22 21:47 Freq: Status: Active Protocol: Document 07/15/22 07:30 AMB (Rec: 07/15/22 15:33 AMB [id number]) OP Gait Assessment Comments Gait Comments Pt reports she has an AFO that she does not use. She inverts her ankle excessivly during the swing phase of gait . PT-OP-J Posture/Palpation/Skin Start: 07/14/22 21:47 Freq: Status: Active Protocol: Document 07/15/22 07:30 AMB (Rec: 07/15/22 15:33 AMB [id number]) Palpation Assessment Location low back Palpation Details tenderness and tension worst at low lumbar sacrum PT-OP-M Strength Start: 07/14/22 21:47 Freq: Status: Active Protocol: Document 07/15/22 07:57 AMB (Rec: 07/15/22 08:20 AMB [id number]) Hip Strength Hip Manual Muscle Testing Right Flexion (L2) 4+ Good+ Extension (S1) 4+ Good+ Abduction 4+ Good+ Left Flexion (L2) 3 Fair Extension (S1) 3- Fair- Abduction 3- Fair- Knee Strength Knee Manual Muscle Testing Right Flexion (S2) 5 Normal Extension (L3) 5 Normal Left Flexion (S2) 4+ Good+ Extension (L3) 4 Good Ankle/Foot Strength Ankle and Foot Manual Muscle Testing Right Dorsiflexion (L4) 5 Normal Plantarflexion (S1) 5 Normal Inversion 5 Normal Eversion (S1) 5 Normal Left Dorsiflexion (L4) 4 Good Plantarflexion (S1) 4 Good Inversion 4 Good Eversion (S1) 3+ Fair+ PT-OP-Q Treatments Start: 07/14/22 21:47 Freq: Status: Active Protocol: Document 09/30/22 10:48 AMB (Rec: 09/30/22 10:55 AMB [id number]) Therapeutic Exercises Standing Exercises clock lunges Reps/Minutes 2x10 sit to stand Reps/Minutes 10 Comments focus on equal weightbearing stairs Standing Exercise Name 6, Reps/Minutes 2x10 Comments railings intermittent heel raises Standing Exercise Name double heel raise, single leg down Reps/Minutes 2x10 Other Exercises yoga trial Other Exercise Name downward dog to warrior transition Reps/Minutes 10 min Comments first rep pt needed light UE support but then improved with reps cristina pose Other Exercise Name sidebending Reps/Minutes 30x2 PT-OP-R Modalities Start: 07/14/22 21:47 Freq: Status: Active Protocol: Document 08/07/22 09:02 AMB (Rec: 08/07/22 09:03 AMB [id number]) Electric Stimulation Electric Stimulation [place] Citizen Stimulation Body Location L tib anterior Duration (Minutes) 10 Comments with toe raises PT-OP-T Assessment and Plan Start: 07/14/22 21:47 Freq: Status: Active Protocol: Document 09/30/22 07:34 AMB (Rec: 09/30/22 08:15 AMB [id number]) Physical Therapy Assessment Goals Gait Short Term Goal (STG) Neelima will ambulate for 6 minutes over uneven terrain including grass, gravel and curb steps without exhibiting foot drop. STG Duration MET---after 1 mile pt notes more antalgic gait Heavy Equipment Mechanic Goal (LTG) Neelima will ascend and descend 3 stairs without railing usage so that she could carry something in her arms on stairs. LTG Duration 10 weeks- needs intermittent UE support maya on decline Two Impairment Strength Short Term Goal (STG) Neelima will improve her strength in her L LE so that she can perform a floor transfer without UE support. STG Duration 5 weeks- doesn't need environmental support but does need UE support floor Heavy Equipment Mechanic Goal (LTG) Neelima will be independent and consistent with a HEP for core, L LE strengthening, and back stretching. LTG Duration MET One Impairment Back pain Short Term Goal (STG) Neelima will roll over in bed without back spasms. STG Duration MET Care Home Goal (LTG) Neelima will walk for 1 mile without an increase in back pain. LTG Duration MET Assessment Summary Assessment Discussed community options for exercise. Consider yoga class at the pool vs online beginner class as pt is getting ready to d/c from PT. Physical Therapy Plan Frequency and Duration Frequency of Treatment 1x/Week Duration of treatment (weeks) 8 Plan of Care Start Date 09/11/22 Plan of Care End Date 11/06/22 Therapeutic Interventions Therapeutic Interventions Balance Training,Gait Training ,Home Exercise Program,Manual Therapy,Neuromuscular Re- education,Self-Care/Home Management,Therapeutic Activities,Therapeutic Exercises Modalities Cold Pack/Ice Massage,Electric Stimulation,Hot Packs Next Visit Focus/Plan Next Note Type Treatment Note
--- NOTE | 2022-10-07 15:43 | PT.OTN ---
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, subsequent encounter (10/07/22) Physical Therapy Treatment Note PT-OP-A Visit Information Start: 07/14/22 21:47 Freq: Status: Active Protocol: Document 10/07/22 07:36 AMB (Rec: 10/07/22 08:15 AMB [id number]) Out-Patient Physical Therapy Visit Information Visit Information Visit Type Treatment Note Visit Start Time 07:30 Visit Stop Time 08:15 Total Visit Minutes 45 Visit Number 16 PT-OP-B Current Condition Start: 07/14/22 21:47 Freq: Status: Active Protocol: Document 07/15/22 07:39 AMB (Rec: 07/15/22 07:54 AMB [id number]) Current Condition History of Current Condition Onset Date April Current Complaints Back going out after spinal cord stroke History of Current Condition L leg had excrutiating pain when trying to get pants on for two days in April. 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 L LE has impaired balance and strength. Challenged with floor transfer using the left leg. Did do 8 weeks of PT when spinal cord stroke first happened. Is currently working out in the pool but concerned about strengthening L leg. Stairs- tries to alternate but needs a railing to do so. Feels like putting a lot of strain on the low back because of the strength deficits. Feels like she's weaker now than when she finished PT. Personal Factors Other Personal Factors That May Effect T5 spinal cord stroke in 2019 Therapy/Recovery PT-OP-C Subjective Start: 07/14/22 21:47 Freq: Status: Active Protocol: Document 10/07/22 07:36 AMB (Rec: 10/07/22 08:15 AMB [id number]) OP-PT Subjective Patient Comments Patient Comments Burning in left thorax at lower ribs around T8 worst on the left PT-OP-D Balance Start: 07/15/22 15:33 Freq: Status: Active Protocol: Document 07/15/22 07:30 AMB (Rec: 07/15/22 15:35 AMB [id number]) Balance Tests Single Limb Standing Single Limb- Right 7 Single Limb- Left 6 increased ankle sway PT-OP-G Mobility & Gait Start: 07/14/22 21:47 Freq: Status: Active Protocol: Document 07/15/22 07:30 AMB (Rec: 07/15/22 15:33 AMB [id number]) OP Gait Assessment Comments Gait Comments Pt reports she has an AFO that she does not use. She inverts her ankle excessivly during the swing phase of gait . PT-OP-J Posture/Palpation/Skin Start: 07/14/22 21:47 Freq: Status: Active Protocol: Document 07/15/22 07:30 AMB (Rec: 07/15/22 15:33 AMB [id number]) Palpation Assessment Location low back Palpation Details tenderness and tension worst at low lumbar sacrum PT-OP-M Strength Start: 07/14/22 21:47 Freq: Status: Active Protocol: Document 07/15/22 07:57 AMB (Rec: 07/15/22 08:20 AMB [id number]) Hip Strength Hip Manual Muscle Testing Right Flexion (L2) 4+ Good+ Extension (S1) 4+ Good+ Abduction 4+ Good+ Left Flexion (L2) 3 Fair Extension (S1) 3- Fair- Abduction 3- Fair- Knee Strength Knee Manual Muscle Testing Right Flexion (S2) 5 Normal Extension (L3) 5 Normal Left Flexion (S2) 4+ Good+ Extension (L3) 4 Good Ankle/Foot Strength Ankle and Foot Manual Muscle Testing Right Dorsiflexion (L4) 5 Normal Plantarflexion (S1) 5 Normal Inversion 5 Normal Eversion (S1) 5 Normal Left Dorsiflexion (L4) 4 Good Plantarflexion (S1) 4 Good Inversion 4 Good Eversion (S1) 3+ Fair+ PT-OP-Q Treatments Start: 07/14/22 21:47 Freq: Status: Active Protocol: Document 10/07/22 07:30 AMB (Rec: 10/07/22 10:00 AMB [id number]) Therapeutic Exercises Supine Exercises DKTC Side bilateral Reps/Minutes 30x2 LTR Reps/Minutes 10 Sitting Exercises 65cm ball Sitting Exercise Name marches, LAQ, pelvic circles Reps/Minutes 10 Standing Exercises posture Standing Exercise Name working on upper back posture. sit to stand Reps/Minutes 10 Comments focus on equal weightbearing Other Exercises cirstina pose Other Exercise Name sidebending Reps/Minutes 30x2 Comments encouraged rounding at lumbar spine Manual Therapy Treatment Soft Tissue Mobilization 1 Body Location lumbar paraspinals Mobilization Type Myofascial Release Intensity/Depth Superficial Body Position Prone PT-OP-R Modalities Start: 07/14/22 21:47 Freq: Status: Active Protocol: Document 08/07/22 09:02 AMB (Rec: 08/07/22 09:03 AMB [id number]) Electric Stimulation Electric Stimulation [place] Stimulation Body Location L tib anterior Duration (Minutes) 10 Comments with toe raises PT-OP-T Assessment and Plan Start: 07/14/22 21:47 Freq: Status: Active Protocol: Document 10/07/22 07:36 AMB (Rec: 10/07/22 08:15 AMB [id number]) Physical Therapy Assessment Goals Gait Short Term Goal (STG) Neelima will ambulate for 6 minutes over uneven terrain including grass, gravel and curb steps without exhibiting foot drop. STG Duration MET---after 1 mile pt notes more antalgic gait Milk Pickup Driver Goal (LTG) Neelima will ascend and descend 3 stairs without railing usage so that she could carry something in her arms on stairs. LTG Duration 10 weeks- needs intermittent UE support maya on decline Two Impairment Strength Short Term Goal (STG) Neelima will improve her strength in her L LE so that she can perform a floor transfer without UE support. STG Duration 5 weeks- doesn't need environmental support but does need UE support floor Usp Goal (LTG) Neelima will be independent and consistent with a HEP for core, L LE strengthening, and back stretching. LTG Duration MET One Impairment Back pain Short Term Goal (STG) Neelima will roll over in bed without back spasms. STG Duration MET Milk Pickup Driver Goal (LTG) Neelima will walk for 1 mile without an increase in back pain. LTG Duration MET Assessment Summary Assessment Neelima tends to increase her lumbar lordosis when trying to have good posture. Encouraged her in arm swing and to be more aware of thoracic posturing. Discussed that bone spur is in upper thoracic and her burning pain is more in lower thoracic/ lumbar, but continue to watch. Physical Therapy Plan Frequency and Duration Frequency of Treatment 1x/Week Duration of treatment (weeks) 8 Plan of Care Start Date 09/11/22 Plan of Care End Date 11/06/22 Therapeutic Interventions Therapeutic Interventions Balance Training,Gait Training ,Home Exercise Program,Manual Therapy,Neuromuscular Re- education,Self-Care/Home Management,Therapeutic Activities,Therapeutic Exercises Modalities Cold Pack/Ice Massage,Electric Stimulation,Hot Packs Next Visit Focus/Plan Next Note Type Treatment Note Next Visit Plan Begin with core stabilization, ankle strengthening, balance training. Progress to stairs, establish lumbar stretching HEP.
--- NOTE | 2022-10-15 10:40 | PT.OTN ---
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, subsequent encounter (10/15/22) Physical Therapy Treatment Note PT-OP-A Visit Information Start: 07/14/22 21:47 Freq: Status: Active Protocol: Document 10/15/22 07:34 AMB (Rec: 10/15/22 08:11 AMB [id number]) Out-Patient Physical Therapy Visit Information Visit Information Visit Type Treatment Note Visit Start Time 07:30 Visit Stop Time 08:15 Total Visit Minutes 45 Visit Number 17 PT-OP-B Current Condition Start: 07/14/22 21:47 Freq: Status: Active Protocol: Document 07/15/22 07:39 AMB (Rec: 07/15/22 07:54 AMB [id number]) Current Condition History of Current Condition Onset Date April Current Complaints Back going out after spinal cord stroke History of Current Condition L leg had excrutiating pain when trying to get pants on for two days in April. 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 L LE has impaired balance and strength. Challenged with floor transfer using the left leg. Did do 8 weeks of PT when spinal cord stroke first happened. Is currently working out in the pool but concerned about strengthening L leg. Stairs- tries to alternate but needs a railing to do so. Feels like putting a lot of strain on the low back because of the strength deficits. Feels like she's weaker now than when she finished PT. Personal Factors Other Personal Factors That May Effect T5 spinal cord stroke in 2019 Therapy/Recovery PT-OP-C Subjective Start: 07/14/22 21:47 Freq: Status: Active Protocol: Document 10/15/22 07:34 AMB (Rec: 10/15/22 08:11 AMB [id number]) OP-PT Subjective Patient Comments Patient Comments Numb day today. Haven't had the burning again. PT-OP-D Balance Start: 07/15/22 15:33 Freq: Status: Active Protocol: Document 07/15/22 07:30 AMB (Rec: 07/15/22 15:35 AMB [id number]) Balance Tests Single Limb Standing Single Limb- Right 7 Single Limb- Left 6 increased ankle sway PT-OP-G Mobility & Gait Start: 07/14/22 21:47 Freq: Status: Active Protocol: Document 07/15/22 07:30 AMB (Rec: 07/15/22 15:33 AMB [id number]) OP Gait Assessment Comments Gait Comments Pt reports she has an AFO that she does not use. She inverts her ankle excessivly during the swing phase of gait . PT-OP-J Posture/Palpation/Skin Start: 07/14/22 21:47 Freq: Status: Active Protocol: Document 07/15/22 07:30 AMB (Rec: 07/15/22 15:33 AMB [id number]) Palpation Assessment Location low back Palpation Details tenderness and tension worst at low lumbar sacrum PT-OP-M Strength Start: 07/14/22 21:47 Freq: Status: Active Protocol: Document 07/15/22 07:57 AMB (Rec: 07/15/22 08:20 AMB [id number]) Hip Strength Hip Manual Muscle Testing Right Flexion (L2) 4+ Good+ Extension (S1) 4+ Good+ Abduction 4+ Good+ Left Flexion (L2) 3 Fair Extension (S1) 3- Fair- Abduction 3- Fair- Knee Strength Knee Manual Muscle Testing Right Flexion (S2) 5 Normal Extension (L3) 5 Normal Left Flexion (S2) 4+ Good+ Extension (L3) 4 Good Ankle/Foot Strength Ankle and Foot Manual Muscle Testing Right Dorsiflexion (L4) 5 Normal Plantarflexion (S1) 5 Normal Inversion 5 Normal Eversion (S1) 5 Normal Left Dorsiflexion (L4) 4 Good Plantarflexion (S1) 4 Good Inversion 4 Good Eversion (S1) 3+ Fair+ PT-OP-Q Treatments Start: 07/14/22 21:47 Freq: Status: Active Protocol: Document 10/15/22 10:06 AMB (Rec: 10/15/22 10:37 AMB [id number]) Therapeutic Exercises Sidelying Exercises clam Side left Reps/Minutes 20 Comments with band- orange Standing Exercises lat stretch at bar Reps/Minutes 30x2 side stepping Reps/Minutes 2x10 Comments with yellow band stairs Standing Exercise Name 6, lateral step up today, very challenging Reps/Minutes 2x10 Comments railings intermittent PT-OP-R Modalities Start: 07/14/22 21:47 Freq: Status: Active Protocol: Document 08/07/22 09:02 AMB (Rec: 08/07/22 09:03 AMB [id number]) Electric Stimulation Electric Stimulation Citizen [place] Stimulation Body Location L tib anterior Duration (Minutes) 10 Comments with toe raises PT-OP-T Assessment and Plan Start: 07/14/22 21:47 Freq: Status: Active Protocol: Document 10/15/22 07:34 AMB (Rec: 10/15/22 08:11 AMB [id number]) Physical Therapy Assessment Goals Gait Short Term Goal (STG) Neelima will ambulate for 6 minutes over uneven terrain including grass, gravel and curb steps without exhibiting foot drop. STG Duration MET---after 1 mile pt notes more antalgic gait Manufacturing Controls Engineer Goal (LTG) Neelima will ascend and descend 3 stairs without railing usage so that she could carry something in her arms on stairs. LTG Duration 10 weeks- needs intermittent UE support maya on decline Two Impairment Strength Short Term Goal (STG) Neelima will improve her strength in her L LE so that she can perform a floor transfer without UE support. STG Duration 5 weeks- doesn't need environmental support but does need UE support floor Manufacturing Controls Engineer Goal (LTG) Neelima will be independent and consistent with a HEP for core, L LE strengthening, and back stretching. LTG Duration MET One Impairment Back pain Short Term Goal (STG) Neelima will roll over in bed without back spasms. STG Duration MET Manufacturing Controls Engineer Goal (LTG) Neelima will walk for 1 mile without an increase in back pain. LTG Duration MET Assessment Summary Assessment Neelima continues to struggle with pain in the L QL area, spasms are better but tightness/numbness continue. Did try community exercise class (yoga) which went well, but was challenging noting she doesn't really have the strength of other participants . Contined to work on getting out of extreme anterior pelvic tilt and improving glute med strength. Physical Therapy Plan Frequency and Duration Frequency of Treatment 1x/Week Duration of treatment (weeks) 8 Plan of Care Start Date 09/11/22 Plan of Care End Date 11/06/22 Therapeutic Interventions Therapeutic Interventions Balance Training,Gait Training ,Home Exercise Program,Manual Therapy,Neuromuscular Re- education,Self-Care/Home Management,Therapeutic Activities,Therapeutic Exercises Modalities Cold Pack/Ice Massage,Electric Stimulation,Hot Packs Next Visit Focus/Plan Next Note Type Progress Note Next Visit Plan Begin with core stabilization, ankle strengthening, balance training. Progress to stairs, establish lumbar stretching HEP.
--- NOTE | 2022-12-03 14:30 | PT-OP ANOTE ---
TELECOMMUNICATIONS REPAIRER chart reviewed and saw pt NS and cancelled multiple appts, POC beginning of Nov. TELECOMMUNICATIONS REPAIRER notified automotive heavy mechanic to call pt and discuss will need new referral and all remaining appts will be cancelled. PT to complete DC.
--- NOTE | 2023-01-08 14:34 | PT.OPDS ---
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, subsequent encounter (10/15/22) Visit Care Team Role Provider Type Rajan Merida DO Attending Provider Physician Family Provider Primary Care Provider Referring Provider Specialty: [facility] Address: [address] [place] [address], [facility] Email: Visit Number Visit Number [id number] Discharge Summary PT-OP-B Current Condition Start: 07/14/22 21:47 Freq: Status: Active Protocol: Document 07/15/22 07:39 AMB (Rec: 07/15/22 07:54 AMB [id number]) Current Condition History of Current Condition Onset Date April Current Complaints Back going out after spinal cord stroke History of Current Condition L leg had excrutiating pain when trying to get pants on for two days in April. 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 L LE has impaired balance and strength. Challenged with floor transfer using the left leg. Did do 8 weeks of PT when spinal cord stroke first happened. Is currently working out in the pool but concerned about strengthening L leg. Stairs- tries to alternate but needs a railing to do so. Feels like putting a lot of strain on the low back because of the strength deficits. Feels like she's weaker now than when she finished PT. Personal Factors Other Personal Factors That May Effect T5 spinal cord stroke in 2019 Therapy/Recovery PT-OP-C Subjective Start: 07/14/22 21:47 Freq: Status: Active Protocol: Document 10/15/22 07:34 AMB (Rec: 10/15/22 08:11 AMB [id number]) OP-PT Subjective Patient Comments Patient Comments Numb day today. Haven't had the burning again. PT-OP-D Balance Start: 07/15/22 15:33 Freq: Status: Active Protocol: Document 07/15/22 07:30 AMB (Rec: 07/15/22 15:35 AMB [id number]) Balance Tests Single Limb Standing Single Limb- Right 7 Single Limb- Left 6 increased ankle sway PT-OP-G Mobility & Gait Start: 07/14/22 21:47 Freq: Status: Active Protocol: Document 07/15/22 07:30 AMB (Rec: 07/15/22 15:33 AMB [id number]) OP Gait Assessment Comments Gait Comments Pt reports she has an AFO that she does not use. She inverts her ankle excessivly during the swing phase of gait . PT-OP-J Posture/Palpation/Skin Start: 07/14/22 21:47 Freq: Status: Active Protocol: Document 07/15/22 07:30 AMB (Rec: 07/15/22 15:33 AMB [id number]) Palpation Assessment Location low back Palpation Details tenderness and tension worst at low lumbar sacrum PT-OP-M Strength Start: 07/14/22 21:47 Freq: Status: Active Protocol: Document 07/15/22 07:57 AMB (Rec: 07/15/22 08:20 AMB [id number]) Hip Strength Hip Manual Muscle Testing Right Flexion (L2) 4+ Good+ Extension (S1) 4+ Good+ Abduction 4+ Good+ Left Flexion (L2) 3 Fair Extension (S1) 3- Fair- Abduction 3- Fair- Knee Strength Knee Manual Muscle Testing Right Flexion (S2) 5 Normal Extension (L3) 5 Normal Left Flexion (S2) 4+ Good+ Extension (L3) 4 Good Ankle/Foot Strength Ankle and Foot Manual Muscle Testing Right Dorsiflexion (L4) 5 Normal Plantarflexion (S1) 5 Normal Inversion 5 Normal Eversion (S1) 5 Normal Left Dorsiflexion (L4) 4 Good Plantarflexion (S1) 4 Good Inversion 4 Good Eversion (S1) 3+ Fair+ PT-OP-T Assessment and Plan Start: 07/14/22 21:47 Freq: Status: Active Protocol: Document 01/08/23 14:34 [facility] (Rec: 01/08/23 14:34 [facility] [id number]) Physical Therapy Assessment Goals Gait Short Term Goal (STG) Neelima will ambulate for 6 minutes over uneven terrain including grass, gravel and curb steps without exhibiting foot drop. STG Duration MET---after 1 mile pt notes more antalgic gait Optical Manufacturing Technician Goal (LTG) Neelima will ascend and descend 3 stairs without railing usage so that she could carry something in her arms on stairs. LTG Duration 10 weeks- needs intermittent UE support maya on decline Two Impairment Strength Short Term Goal (STG) Neelima will improve her strength in her L LE so that she can perform a floor transfer without UE support. STG Duration 5 weeks- doesn't need environmental support but does need UE support floor Optical Manufacturing Technician Goal (LTG) Neelima will be independent and consistent with a HEP for core, L LE strengthening, and back stretching. LTG Duration MET One Impairment Back pain Short Term Goal (STG) Neelima will roll over in bed without back spasms. STG Duration MET Assisted Goal (LTG) Neelima will walk for 1 mile without an increase in back pain. LTG Duration MET Assessment Summary Assessment JELLY MAKER chart reviewed and saw pt NS and cancelled multiple appts, POC beginning of Nov. JELLY MAKER notified education assistant to call pt and discuss will need new referral and all remaining appts will be cancelled. DC d/t compliance policy and POC . Physical Therapy Plan Discharge Physical Therapy Discharge Reasons No Longer Attending PT
== END 2023-01-13 15:13 | disposition home or self-care (01) ==
LOC: PHYS 07:30
PROVIDERS: Family Provider Family Medicine; PCP Family Medicine; Referring Provider Family Medicine; Visit Provider Family Medicine
DX: M54.42 Lumbago with sciatica, left side (principal); S24 Injury of nerves and spinal cord at thorax level; R26.89 Other abnormalities of gait and mobility
CPT/HCPCS: 97110; 97112; 97140; 97162

== ENCOUNTER → 2022-11-07 07:14 | Outpatient (CLI) | payer OTHER, SELFPAY ==
[2022-11-08 19:36] LABS: Fecal Immunochemical Test Negative (Negative)
== END ==
PROVIDERS: Family Provider Family Medicine; PCP Family Medicine; Referring Provider Family Medicine; Visit Provider Family Medicine
DX: Z12.11 Encounter for screening for malignant neoplasm of colon (principal)
CPT/HCPCS: 82274

== ENCOUNTER → 2022-12-05 15:30 | Outpatient (CLI) | payer OTHER, SELFPAY ==
--- NOTE | 2022-12-05 15:30 | DI.MG.S_ITS ---
BILATERAL DIGITAL SCREENING MAMMOGRAM 3D/2D WITH CAD: 12/05/2022 CLINICAL: Baseline exam. Routine screening. Family history of breast cancer. No prior exams were available for comparison. There are scattered areas of fibroglandular density in both breasts (category b / 25%-50% glandular tissue). Current study was also evaluated with a Computer Aided Detection (CAD) system. No significant masses, calcifications, or other findings are seen in either breast. IMPRESSION: NEGATIVE There is no mammographic evidence of malignancy. A 1 year screening mammogram is recommended. Based on the Tyrer Cuzick model (a risk assessment model) the patient's lifetime risk is 12.7% and her 10 year risk is 3.2%. According to the ACR, ACS, and NCCN guidelines, an annual breast MRI exam along with mammogram is recommended if the patient's lifetime risk is 20% or greater. This exam was interpreted at Station [facility]: [id number]. NOTE: For mammograms, a report in lay terms will be sent to the patient. Approximately 15% of breast malignancies will not be visualized mammographically. In the management of a palpable breast mass, a negative mammogram must not discourage biopsy of a clinically suspicious lesion. Electronically Signed By: Selwyn Chairez M.D. aty/:12/15/2022 13:58:48 letter sent: Normal Exam ACR BI-RADS Category 1: Negative [id number]
== END ==
PROVIDERS: PCP Family Medicine; Referring Provider Family Medicine; Visit Provider Family Medicine
DX: Z12.31 Encounter for screening mammogram for malignant neoplasm of breast (principal)
CPT/HCPCS: 77063; 77067

== ENCOUNTER → 2023-05-16 06:49 | Outpatient (CLI) | payer OTHER, SELFPAY ==
[2023-05-16 08:05] LABS: Add Manual Diff / Slide Review NO; Basophils Absolute Auto 0 /uL (0-100); Basophils Percent Auto 0.9 % (0-2); Eosinophils Absolute Auto 100 /uL (0-450); Eosinophils Percent Auto 2.5 % (2-4); Hematocrit 40.5 % (36-46); Hemoglobin 13.8 g/dL (12.0-16.0); Lymphocytes Absolute Auto 1800 /uL (1100-4500); Lymphocytes Percent Auto 33.3 % (25-40); Mean Corpuscular HGB Conc 34.2 % (30-36); Mean Corpuscular Hemoglobin 30.6 PG (26-34); Mean Corpuscular Volume 89.4 fL (80-100); Monocytes Absolute Auto 400 /uL (0-900); Monocytes Percent Auto 7.7 % (3-14); Neutrophils Absolute Auto 3100 /uL (1500-7000); Neutrophils Percent Auto 55.6 % (50-75); Platelet Count 265 X10^3/uL (150-400); Red Blood Cell Count 4.53 X10^6/uL (4.0-5.2); Red Cell Distribution Width 13.2 % (11.6-14.8); White Blood Cell Count 5.5 X10^3/uL (4.5-11.0)
[2023-05-16 08:10] LABS: Alanine Aminotransferase 21 IU/L (<35); Albumin 4.3 g/dL (3.5-5.0); Albumin Globulin Ratio 1.4 (1.0-2.8); Alkaline Phosphatase 59 U/L (38-126); Aspartate Aminotransferase 25 IU/L (14-36); Blood Urea Nitrogen 20 mg/dL (7-17); Calcium 8.9 mg/dL (8.4-10.2); Carbon Dioxide 26 mmol/L (22-32); Chloride 103 mmol/L (98-107); Cholesterol 211 mg/dL (140-199); Estimated Glomerular Filt Rate > 60 mL/min (>60); Globulin 3.1 g/dL (1.7-4.1); Glucose 97 mg/dL (70-100); HDL Cholesterol 44 mg/dL (40-60); HEMOLYSIS < 15 (0-50); LDL Cholesterol Calculated 142 mg/dL (<100); Potassium 4.1 mmol/L (3.4-5.1); Sodium 138 mmol/L (137-145); Total Protein 7.4 g/dL (6.3-8.2); Triglycerides 123 mg/dL (35-150)
[2023-05-16 08:46] LABS: TSH w/ Reflex to FT4 1.49 uIU/mL (0.47-4.68)
[2023-05-18 09:40] LABS: x Labcorp Estim. Avg Glu (eAG) 108 mg/dL (.); x Labcorp Hemoglobin A1c 5.4 % (4.8-5.6)
== END ==
LOC: LAB 06:51
PROVIDERS: PCP Student in an Organized Health Care Education/Training Program; Referring Provider Student in an Organized Health Care Education/Training Program; Visit Provider Student in an Organized Health Care Education/Training Program
DX: R63.5 Abnormal weight gain (principal); E78.00 Pure hypercholesterolemia, unspecified; R53.83 Other fatigue; E66.9 Obesity, unspecified
CPT/HCPCS: 36415; 80053; 80061; 83036; 84443; 85025

== ENCOUNTER → 2024-02-27 13:56 | Outpatient (CLI) | payer OTHER, SELFPAY ==
--- NOTE | 2024-02-27 | DI.MG.S_ITS ---
BILATERAL DIGITAL SCREENING MAMMOGRAM 3D/2D WITH CAD: 02/27/2024 CLINICAL: Routine screening. Family history of breast cancer. Comparison is made to exam dated: 12/05/2022 mammogram - [facility]. There are scattered areas of fibroglandular density (category b / 25%-50% glandular tissue). Current study was also evaluated with a Computer Aided Detection (CAD) system. No significant masses, calcifications, or other findings are seen in either breast. There has been no significant interval change. IMPRESSION: NEGATIVE There is no mammographic evidence of malignancy. A 1 year screening mammogram is recommended. Based on the Tyrer Cuzick model (a risk assessment model) the patient's lifetime risk is 12.9% and her 10 year risk is 3.4%. According to the ACR, ACS, and NCCN guidelines, an annual breast MRI exam along with mammogram is recommended if the patient's lifetime risk is 20% or greater. This exam was interpreted at Station ID: [id number]. NOTE: For mammograms, a report in lay terms will be sent to the patient. Approximately 15% of breast malignancies will not be visualized mammographically. In the management of a palpable breast mass, a negative mammogram must not discourage biopsy of a clinically suspicious lesion. Electronically Signed By: Mello [email or web address]/dae:02/27/2024 15:07:34 letter sent: Normal Exam ACR BI-RADS Category 1: Negative
== END ==
PROVIDERS: PCP Student in an Organized Health Care Education/Training Program; Referring Provider Student in an Organized Health Care Education/Training Program; Visit Provider Student in an Organized Health Care Education/Training Program
DX: Z12.31 Encounter for screening mammogram for malignant neoplasm of breast (principal); Z80.3 Family history of malignant neoplasm of breast
CPT/HCPCS: 77063; 77067

== ENCOUNTER → 2024-06-14 08:21 | Outpatient (CLI) | payer OTHER, SELFPAY ==
[2024-06-15 17:13] LABS: Fecal Immunochemical Test Negative (Negative)
== END ==
PROVIDERS: PCP Student in an Organized Health Care Education/Training Program; Referring Provider Student in an Organized Health Care Education/Training Program; Visit Provider Student in an Organized Health Care Education/Training Program
DX: Z12.11 Encounter for screening for malignant neoplasm of colon (principal)
CPT/HCPCS: 82274